=== PATIENT | male | born 1960 | race Caucasian/White ===

== ENCOUNTER 2017-05-12 13:15 | Outpatient (RCR) | payer OTHER, SELFPAY | END 2017-05-12 13:16 | disposition home or self-care (01) | LOC: PT 13:15 | PROVIDERS: Visit Provider Orthopaedic Surgery Sports Medicine | DX: M67.01 Short Achilles tendon (acquired), right ankle (principal); M19.071 Primary osteoarthritis, right ankle and foot; M76.821 Posterior tibial tendinitis, right leg | CPT/HCPCS: 97760 ==

== ENCOUNTER 2017-05-25 13:00 | Outpatient (RCR) | payer OTHER, SELFPAY | END 2017-05-25 13:01 | disposition home or self-care (01) | LOC: PT 13:00 | PROVIDERS: Visit Provider Orthopaedic Surgery Sports Medicine | DX: M67.01 Short Achilles tendon (acquired), right ankle (principal); M76.821 Posterior tibial tendinitis, right leg | CPT/HCPCS: 97010; 97014; 97016; 97110; G0283 ==

== ENCOUNTER 2023-01-11 10:36 | Emergency (ER) | payer SELFPAY ==
[2023-01-11 10:38] VITALS: BP 158/85; PULSE 61; RESP 18; TEMP 36.7; O2SAT 99; BMI 25.1
--- NOTE | 2023-01-11 11:05 | XR_ITS ---
FINAL REPORT CLINICAL HISTORY: CONSTIPATION COMPARISON: None FINDINGS: A single supine view the abdomen was obtained. The bowel gas pattern is nonspecific but nonobstructive. There is a large amount of retained stool. There are no pathologic calcifications. Osseous structures are within normal limits. IMPRESSION: Nonspecific but nonobstructive bowel gas pattern. Large stool. Reviewed, Interpreted and Dictated by Betina Lane MD Transcribed by Jacqueline Wilkes Authenticated and [facility]
--- NOTE | 2023-01-11 11:12 | PC.NURSE ---
PT TO XR
--- NOTE | 2023-01-11 11:21 | PC.NURSE ---
Pt back to room from [facility]
--- NOTE | 2023-01-11 11:51 | CT_ITS ---
FINAL REPORT TECHNIQUE: Thin section axial images are obtained through the abdomen and pelvis after intravenous contrast. Reconstruction images were obtained from the axial data. Exam was performed using dose reduction techniques. CLINICAL HISTORY: no BM 2 weeks FINDINGS: LUNG BASES: Lung bases are clear. Heart size is normal. LIVER: Homogeneous. No focal lesion. GALLBLADDER/BILIARY SYSTEM: Gallbladder is present. No gallstones. No biliary dilatation. SPLEEN: Unremarkable. PANCREAS: Unremarkable. ADRENALS: Unremarkable. SYSTEM: No hydronephrosis, renal mass, or renal stone. Unremarkable urinary bladder. Pelvic organs are unremarkable for age. Enlarged prostate. GI TRACT: Pandiverticulosis without evidence of diverticulitis. Large amount of retained stool seen in the rectum. No small bowel obstruction or dilatation. Appendix not visualized. No secondary findings of appendicitis. No acute colon abnormality. LYMPH NODES/RETROPERITONEUM/MESENTERY: No lymphadenopathy. No abdominal aortic aneurysm. Possible prior inguinal hernia repair. Although, there may be a small left inguinal hernia. OTHER: No ascites. Remaining soft tissues without acute abnormality. BONES: No acute osseous abnormality. IMPRESSION: Large amount of stool present with rectal fecal impaction. Diverticulosis without evidence of diverticulitis. Reviewed, Interpreted and Dictated by Betina Lane MD Transcribed by Stephani Botello Authenticated and [facility]
--- NOTE | 2023-01-11 11:52 | HMH.EDGENADL ---
Discharge Plan Disposition Patient Disposition: Home, Self-Care Referrals Follow up/Referrals: Meka Sanchez MD [Primary Care Provider] - See instructions Activity Restrictions/Add. Instructions Additional Instructions/Restrictions: At this time it was felt you are safe to be discharged home. If new or worsening symptoms please do not hesitate to return the emergency department. If symptoms persist please follow-up with your family doctor as you are able. Clinical Impressions Clinical Impression: Fecal impaction Discharge ED Provider: Benjy Mcgregor General Adult HPI General Chief complaint: Abdominal Pain Stated complaint: stomach pain, possibly constipated Time Seen by Provider: 01/11/23 11:30 Mode of Arrival: Ambulatory Limitations: No Limitations Description of Symptoms (Recalled from ER Triage Doc. by RN): PT REPORTS DIFFUSE ABDOMINAL PAIN, REPORTS CONSTIPATION. LAST BM 2 WEEKS AGO. HAS NOT TAKEN ANY MEDICATIONS OR ENEMAS History of Present Illness HPI narrative: Patient is a 62-year-old male with past medical history of multiple hernia status post multiple surgical interventions, last surgical intervention 2014 at [place] with mesh repair. He presents emergency department for evaluation of constipation and abdominal pain. Onset was subacute. Patient has not had a bowel movement in 2 weeks. He has generalized abdominal pain that is difficult to localize. No vomiting. No dysuria. Adequate p.o. intake and urine output. Still passing flatus. Patient attempted to self disimpact himself at home for which he was unsuccessful. No other acute complaints at this time. Related Data Allergies Allergy/AdvReac Type Severity Reaction Status Date / Time No Known Allergies Allergy Unverified 02/23/17 15:27 [facility] Disclaimer: The information contained in this section may have been updated after the patient was seen, as this information can be updated by other users. Social History Smoking Status: Current every day smoker alcohol intake: never current occupational status: other Travel in the last 8 weeks: None ROS Obtained: Yes Systems reviewed as appropriate & no additional complaints except as documented Physical Exam General General appearance: alert and in no apparent distress Head Head exam: atraumatic and normocephalic Eye Eye exam: Present PERRL and EOMI ENT ENT exam: Present mucous membranes moist Neck Neck exam: Present normal inspection Chest Chest inspection: Present normal inspection and symmetric chest wall rise Respiratory Respiratory exam: Present normal lung sounds bilaterally; Absent respiratory distress Cardiovascular Cardiovascular exam: Present regular rate and normal rhythm Abdominal Exam Abdominal exam: Present distention (Mild) and tenderness (Mild, diffuse) Extremities Exam Extremities exam: Present normal inspection Neurological Exam Neurological exam: Present alert Psychiatric Psychiatric exam: Present normal affect Skin Skin exam: Present warm and dry Medical Decision Making Jorje Inquiry Pt receiving controlled substance: No Vital Signs: 01/11/23 10:38 Temperature 98.0 F Temperature Source Oral Pulse Rate [Radial] 61 Respiratory Rate 18 Blood Pressure [Right Arm] 158/85 H Blood Pressure Mean [Right Arm] 109 Blood Pressure Source [Right Arm] Automatic Cuff Blood Pressure Position [Right Arm] Sitting 02 Sat by Pulse Oximetry 99 Oxygen Delivery Method Room Air Lab Data Lab Results 01/11/23 12:10: WBC 17.8 H, RBC 5.40, Hgb 17.4, Hct 49.9, MCV 92.4, MCH 32.1 H, MCHC 34.8, RDW 14.2, Plt Count 207, MPV 9.0, Neut % (Auto) 77.6, Lymph % (Auto) 14.7, [place] % (Auto) 4.8, Eos % (Auto) 2.1, Baso % (Auto) 0.6, Neut # (Auto) 13.8 H, Lymph # (Auto) 2.6, [place] # (Auto) 0.9, Eos # (Auto) 0.4, Baso # (Auto) 0.1, Total Counted 100, Neutrophils % (Manual) 78 H, Lymphocytes % (Manual) 14, Monocytes % (Manual) 6, Eosinophils % (Manual) 2, Platelet Estimate
[2023-01-11 12:29] LABS: Basophils # 0.1 K/mm3 (0-0.2); Basophils % 0.6 % (0.1-2.0); Eosinophils # 0.4 K/mm3 (0.0-0.4); Eosinophils % 2.1 % (0.1-12.0); Hematocrit 49.9 % (42.0-52.0); Hemoglobin 17.4 g/dL (14.1-18.0); Lymphocytes # 2.6 K/mm3 (0.7-4.5); Lymphocytes % 14.7 % (10-50); MANUAL DIFFERENTIAL MANUAL DIFFERENTIAL (MANUAL DIFF); Mean Corpuscular HGB Conc 34.8 g/dL (31.8-35.4); Mean Corpuscular Hemoglobin 32.1 pg (27.0-31.2); Mean Corpuscular Volume 92.4 fl (80-94); Monocytes # 0.9 K/mm3 (0.1-1.0); Monocytes % 4.8 % (1.7-9.3); Neutrophils # 13.8 K/mm3 (1.8-7.8); Neutrophils % 77.6 % (37.0-80.0); Platelet Count 207 K/mm3 (142-424); Red Cell Distribution Width 14.2 % (11.5-17.5); White Blood Count 17.8 K/mm3 (4.8-10.8)
[2023-01-11 12:33] LABS: Alanine Aminotransferase 22 U/L (12-78); Albumin Level 4.4 g/dl (3.5-5.0); Albumin/Globulin Ratio 1.5 (1.1-1.8); Alkaline Phosphatase 91 U/L (38-126); Anion Gap 14.9 mEq/L (5-15); Aspartate Amino Transferase 24 U/L (17-59); Bilirubin,Total 0.6 mg/dl (0.2-1.3); Blood Urea Nitrogen 14 mg/dl (9-20); Calcium 9.1 mg/dl (8.4-10.2); Carbon Dioxide 27 mmol/L (22.0-30.0); Chloride 104 mmol/L (98-107); Creatinine Clearance Estimated 76 mL/min (50-200); Estimated Glomerular Filt Rate 62 ml/min (>60); GFR (African American) 75 ML/MIN (>60); Glucose 117 mg/dl (74-100); Potassium 3.9 mmoL/L (3.5-5.1); Sodium 142 mmol/L (136-145); Total Protein,Serum 7.4 g/dl (6.3-8.2)
[2023-01-11 12:39] LABS: Lactic Acid 1.4 mmol/L (0.7-2.1); Lipase 43 U/L (23-300)
[2023-01-11 12:46] LABS: Eosinophils % 2 % (0-3); Lymphocytes % 14 % (10-50); Monocytes % 6 % (2-9); Neutrophils % 78 % (42-76); Platelet Estimate Normal; RBC Morphology Normal; Total Cells Counted 100
[2023-01-11 13:18] LABS: Microscopic, Urine URINE MICROSCOPIC (MICROSCOPIC)
[2023-01-11 13:22] LABS: Appearance,Urine CLEAR (Clear); Bilirubin,Urine Negative (Negative); Blood, Urine Negative (Negative); Color,Urine YELLOW (Yellow); Glucose,Urine (UA) Negative (Negative); Ketones,Urine Negative (Negative); Leukocyte Esterase,Urine Negative (Negative); Nitrate,Urine Negative (Negative); Protein,Urine 1+ (Negative); Specific Gravity, Urine 1.025 (1.005-1.030)
[2023-01-11 14:32] LABS: Bacteria,Urine Trace /lpf; Squamous Epithelial Cell,Urine Occasional #/hpf (0-5)
[2023-01-11 16:26] VITALS: BP 145/70; PULSE 72; RESP 20; TEMP 36.7; O2SAT 96
== END 2023-01-11 16:28 | disposition home or self-care (01) ==
PROVIDERS: Emergency Provider Emergency Medicine; PCP Family Medicine
DX: R10.84 Generalized abdominal pain (principal); K56.41 Fecal impaction; F17.210 Nicotine dependence, cigarettes, uncomplicated
CPT/HCPCS: 74018; 74177; 80053; 81001; 83605; 83690; 85007; 85025; 96374; 99284; J0131; Q9967

== ENCOUNTER 2023-12-18 06:22 | Emergency (ER) | payer OTHER, SELFPAY ==
[2023-12-18] VITALS (9 sets, daily range): BP systolic 111–161; BP diastolic 85–118; PULSE 62–104; RESP 10–18; TEMP 36.5–37.1; O2SAT 95–98; BMI 25.1
--- NOTE | 2023-12-18 06:17 | ECG_ITS ---
APPROVED REPORT Exam: Resting ECG HR:83 bpm ECG Measurements Heart Rate 83 AXES QRSd 113 QRS 57 QT 365 T 56 QTc 404 Conclusion ATRIAL FIBRILLATION MODERATE INTRAVENTRICULAR CONDUCTION DELAY [110+ ms QRS DURATION] NONSPECIFIC ST & T-WAVE ABNORMALITY Posterior ECG, leads V4/V5/V6 are actually leads V7/V8/V9 Mild precordial depression, no STEMI Electronically signed by : BRYON LOPEZ, 12/18/2023 07:12:08
--- NOTE | 2023-12-18 06:19 | ECG_ITS ---
APPROVED REPORT Exam: Resting ECG HR:104 bpm ECG Measurements Heart Rate 104 AXES QRSd 98 QRS 54 QT 370 T 48 QTc 430 Conclusion ATRIAL FIBRILLATION WITH RAPID VENTRICULAR RESPONSE MODERATE ST DEPRESSION [0.05+ mV ST DEPRESSION] Mild precordial/lateral lead depression, no STEMI Electronically signed by : BRYON LOPEZ, 12/18/2023 07:12:28
--- NOTE | 2023-12-18 06:22 | XR_ITS ---
PROCEDURE INFORMATION: Exam: XR Chest Exam date and time: 12/18/2023 6:29 AM Age: 63 years old Clinical indication: Pain; Chest pressure; Additional info: Chest pain TECHNIQUE: Imaging protocol: Radiologic exam of the chest. Views: 2 views. COMPARISON: CR CXR1 CHEST-PORTABLE 01/15/2017 9:42 PM FINDINGS: Lungs: Unremarkable. No consolidation. Pleural spaces: Unremarkable. No pleural effusion. No pneumothorax. Heart/Mediastinum: Unremarkable. No cardiomegaly. Bones/joints: Unremarkable. IMPRESSION: No acute findings.
--- NOTE | 2023-12-18 06:27 | HMH.EDCP ---
Discharge Plan Disposition Patient Disposition: Admitted Referrals Follow up/Referrals: Provider,Referral, [Primary Care Provider] - See instructions Clinical Impressions Clinical Impression: Atrial fibrillation with RVR, Elevated troponin, Hyperkalemia, Chest pain, Hypertension Print Language Print Language: [place] Discharge ED Provider: Brenda Hughes HPI <Joann Mccullough MD - Last Filed: 12/18/23 07:05> General Chief Complaint: Chest Pain Stated Complaint: Chest pain Time Seen by Provider: 12/18/23 06:25 History of Present Illness HPI narrative: 63-year-old male with reported history of COPD presents to the ER with left-sided chest pain. Patient reports he was awoken from sleep approximately 1.5 hours prior to arrival with severe left-sided chest pain and sweating. He states he was not nauseous or dizzy. The pain did not radiate. He walked up to his niece's house next door, and she called 911. Patient reports no known cardiac history, he takes no blood thinners, he has never had symptoms like this before. He denies having any sick symptoms recently, ROS is otherwise negative. EMS reports they administered aspirin and nitro, patient states his chest pain improved from an 9 out of 10 to a 4 out of 10 after these interventions. EMS reports his blood pressure improved from the 190s to the 160s after these interventions. Related Data Home Medications ?Medication ?Instructions ?Recorded ?Confirmed famotidine 40 mg tablet 40 mg PO HS 12/18/23 12/18/23 folic acid 1 mg tablet 1 mg PO DAILY 12/18/23 12/18/23 hydroxyzine pamoate 25 mg capsule 25 mg PO HS 12/18/23 12/18/23 loratadine 10 mg tablet 10 mg PO DAILY 12/18/23 12/18/23 primidone 50 mg tablet 25 mg PO HS 12/18/23 12/18/23 propranolol 60 mg capsule,24 60 mg PO DAILY 12/18/23 12/18/23 hr,extended release simvastatin 20 mg tablet 20 mg PO HS 12/18/23 12/18/23 tamsulosin 0.4 mg capsule 0.4 mg PO HS 12/18/23 12/18/23 Allergies Allergy/AdvReac Type Severity Reaction Status Date / Time No Known Allergies Allergy Unverified 02/23/17 15:27 PFSH <Joann Mccullough MD - Last Filed: 12/18/23 07:05> [facility] Disclaimer: The information contained in this section may have been updated after the patient was seen, as this information can be updated by other users. Social History (Updated 01/11/23 @ 16:28 by Benjy Mcgregor MD) Smoking Status: Current every day smoker alcohol intake: never current occupational status: other Travel in the last 8 weeks: None <Joann Mccullough MD - Last Filed: 12/18/23 07:05> ROS Obtained: Yes All systems reviewed & no additional complaints except as documented Positive ROS per HPI Physical Exam <Joann Mccullough MD - Last Filed: 12/18/23 07:05> General General appearance: alert and in no apparent distress Head Head exam: atraumatic and normocephalic Eye Eye exam: Present PERRL and EOMI ENT ENT exam: Present mucous membranes moist Neck Neck exam: Present normal inspection and full ROM Chest Chest inspection: Present symmetric chest wall rise Respiratory Respiratory exam: Present normal lung sounds bilaterally; Absent respiratory distress, wheezes or stridor Cardiovascular Cardiovascular exam: Present regular rate and normal rhythm Abdominal Exam Abdominal exam: Present soft; Absent distention, tenderness, guarding or rebound Extremities Exam Extremities exam: Present full ROM Neurological Exam Neurological exam: Present alert and oriented X3; Absent motor sensory deficit Psychiatric Psychiatric exam: Present normal affect and normal mood Skin Skin exam: Present warm and dry HEART Score <Joann Mccullough MD - Last Filed: 12/18/23 07:05> HEART Score HEART Score assessment performed?: No <Brenda Hughes DO - Last Filed: 12/18/23 10:42> HEART Score HEART Score assessment performed?: Yes History (anamnesis): Moderately suspicious ECG: Non-specific disturbance Age: 45-65 years Risk factors: 1-2 risk factors Troponin: > 3x normal limit HEART Score: 6 Critical Care <Joann Mccullough MD - Last Filed: 12/18/23 07:05> Critical Care Time Critical Care Time: Yes Attestation: On 12/18/23, the high probability of a clinically significant, sudden or life threatening deterioration of the following system(s) (cardiac) required my full and direct attention, intervention and personal management. The time I documented below is in addition to time spent performing reported procedures but includes the following listed in this critical care notation. Total Time Total Critical Care Time: 32 Medical Decision Making <Joann Mccullough MD - Last Filed: 12/18/23 07:05> Medical Records Medical records reviewed: Yes I reviewed the patient's medical records. MR Comment: Patient has previously been evaluated in our ER however he has no cardiac history documented in our system. Jorje Inquiry Pt receiving controlled substance: No Vital Signs Vital Signs: 12/18/23 06:22 12/18/23 07:01 12/18/23 07:30 Temperature 97.7 F Temperature Source Oral Pulse Rate 64 74 Pulse Rate [Apical] 104 H Respiratory Rate 12 12 13 Blood Pressure 121/91 H 134/94 H Blood Pressure [Right Arm] 161/118 H Blood Pressure Mean Blood Pressure Mean [Right Arm] 132 Blood Pressure Source [Right Arm] Automatic Cuff Blood Pressure Position [Right Arm] Sitting 02 Sat by Pulse Oximetry 95 95 96 Oxygen Delivery Method Room Air 12/18/23 08:00 12/18/23 08:30 12/18/23 09:00 Temperature Temperature Source Pulse Rate 62 65 74 Pulse Rate [Apical] Respiratory Rate 12 10 L 16 Blood Pressure 124/90 111/86 113/97 H Blood Pressure [Right Arm] Blood Pressure Mean 100 Blood Pressure Mean [Right Arm] Blood Pressure Source [Right Arm] Blood Pressure Position [Right Arm] 02 Sat by Pulse Oximetry 98 95 98 Oxygen Delivery Method 12/18/23 09:30 Temperature Temperature Source Pulse Rate 67 Pulse Rate [Apical] Respiratory Rate 16 Blood Pressure 126/91 H Blood Pressure [Right Arm] Blood Pressure Mean 98 Blood Pressure Mean [Right Arm] Blood Pressure Source [Right Arm] Blood Pressure Position [Right Arm] 02 Sat by Pulse Oximetry 98 Oxygen Delivery Method Lab Data Labs: Lab Results 12/18/23 06:00: WBC 11.4 H, RBC 5.84, Hgb 18.4 H, Hct 52.9 H, MCV 90.6, MCH 31.6 H, MCHC 34.8, RDW 14.5, Plt Count 196, MPV 10.1, Neut % (Auto) 55.2, Lymph % (Auto) 29.0, [place] % (Auto) 8.1, Eos % (Auto) 6.1, Baso % (Auto) 1.5, Neut # (Auto) 6.3, Lymph # (Auto) 3.3, [place] # (Auto) 0.9, Eos # (Auto) 0.7 H, Baso # (Auto) 0.2, PT 10.3, INR 0.91, APTT 27.6, D-Dimer 0.53 H, Sodium 141, Potassium 5.4 H, Chloride 105, Carbon Dioxide 27, Anion Gap 14.4, BUN 14, Creatinine 1.20, Estimated Creat Clear 75, Estimated GFR 62, Est GFR ( Amer) 74, Glucose 101 H, Calcium 10.8 H, Total Bilirubin 0.8, AST 33, ALT 31, Alkaline Phosphatase 87, Troponin I < 0.01, NT-Pro-B Natriuret Pep 113, Total Protein 7.9, Albumin 5.0, Globulin 2.9, Albumin/Globulin Ratio 1.7 12/18/23 09:06: Troponin I 0.30 H 12/18/23 06:00 12/18/23 06:00 Response Orders (Tests/Meds): ED MEDICATIONS Generic Name Dose Route Start Last Admin Trade Name Freq PRN Reason Stop Dose Admin Nitroglycerin 0.4 mg 12/18/23 06:22 12/18/23 06:50 Nitroglycerin 0.4mg Sl Tablet SL 12/19/23 06:22 0.4 mg Q5MINP PRN Administration Chest Pain Discontinued Medications Generic Name Dose Route Start Last Admin Trade Name Freq PRN Reason Stop Dose Admin Apixaban 5 mg 12/18/23 09:58 12/18/23 10:03 Apixaban 5mg Tablet PO 12/18/23 09:59 5 mg ONCE ONE Administration Metoprolol Tartrate 5 mg 12/18/23 06:23 12/18/23 07:06 Metoprolol Tartrate 5mg/5ml Vial IV 12/18/23 06:24 Not Given ONCE ONE Metoprolol Tartrate 2.5 mg 12/18/23 06:23 12/18/23 06:33 Metoprolol Tartrate 5mg/5ml Vial IV 12/18/23 06:24 2.5 mg ONCE ONE Administration Metoprolol Tartrate 50 mg 12/18/23 08:18 12/18/23 08:29 Metoprolol Tartrate 50mg Tablet PO 12/18/23 08:19 50 mg ONCE ONE Administration ORDERS Category Date Time Status XR chest 2V Stat Exams 12/18/23 06:22 Completed Activated Partial Thrombo Time Stat Lab 12/18/23 06:00 Completed Complete Blood Count Auto Diff Stat Lab 12/18/23 06:00 Completed Comprehensive Metabolic Panel Stat Lab 12/18/23 06:00 Completed D-Dimer Stat Lab 12/18/23 06:00 Completed HIV (1&2) Antibody Rapid Stat Lab 12/18/23 06:36 Ordered Hep C Ab with Reflex to RNA Stat Lab 12/18/23 06:36 Ordered NT Pro Brain Natriuretic Pep. Stat Lab 12/18/23 06:00 Completed Prothrombin Time INR Stat Lab 12/18/23 06:00 Completed Troponin I Q3H Lab 12/18/23 06:00 Completed Troponin I Q3H Lab 12/18/23 09:06 Completed Troponin I Q3H Lab 12/18/23 12:30 Ordered MDM Narrative Medical Decision Narrative: In summary, this 63-year-old male with history of COPD which is a comorbidity of current condition and increases overall morbidity presents to the emergency department today with left-sided chest pain, sweating that was improved after receiving aspirin and nitro from EMS. On initial evaluation patient is hemodynamically stable though he is intermittently tachycardic, appears to be in atrial fibrillation, afebrile, 2+ pulses throughout, no pitting edema, no abdominal pain or tenderness, GCS 15, no neurodeficits. Differential diagnosis includes but is not limited to ACS, PE, infectious etiology, arrhythmia, hypertensive urgency/emergency, electrolyte abnormality, dehydration, esophageal spasm. Based on these concerns, I ordered serum labs, cardiac workup. ECGs from EMS demonstrated depressions in the lateral leads so posterior ECG was initially performed. ECG personally interpreted demonstrates atrial fibrillation with rate 83, no STEMI, normal axis, normal QTc, patient did have depressions in lead V2, V3, leads V4/5/6 where the posterior leads on the initial ECG and did not demonstrate ST elevation. Standard ECG was then performed and personally interpreted demonstrating A-fib with RVR rate 104, normal axis, persistent ST abnormalities in the precordial leads but no STEMI. Patient received low-dose metoprolol for rate control and some hypertension management since patient continues feeling symptomatic. Patient states he has no history of atrial fibrillation and does not know when this may have started. Chest x-ray personally interpreted does not demonstrate acute intrathoracic abnormality, see radiology read for final interpretation. Patient received nitro for persistently elevated blood pressure and continued chest pain. Blood pressure and chest pain have improved. All labs pending at the time of physician handoff. Patient handed off to Dr. Hughes for continued management and disposition <Brenda Hughes, DO - Last Filed: 12/18/23 10:42> Vital Signs Vital Signs: 12/18/23 06:22 12/18/23 07:01 12/18/23 07:30 Temperature 97.7 F Temperature Source Oral Pulse Rate 64 74 Pulse Rate [Apical] 104 H Respiratory Rate 12 12 13 Blood Pressure 121/91 H 134/94 H Blood Pressure [Right Arm] 161/118 H Blood Pressure Mean Blood Pressure Mean [Right Arm] 132 Blood Pressure Source [Right Arm] Automatic Cuff Blood Pressure Position [Right Arm] Sitting 02 Sat by Pulse Oximetry 95 95 96 Oxygen Delivery Method Room Air 12/18/23 08:00 12/18/23 08:30 12/18/23 09:00 Temperature Temperature Source Pulse Rate 62 65 74 Pulse Rate [Apical] Respiratory Rate 12 10 L 16 Blood Pressure 124/90 111/86 113/97 H Blood Pressure [Right Arm] Blood Pressure Mean 100 Blood Pressure Mean [Right Arm] Blood Pressure Source [Right Arm] Blood Pressure Position [Right Arm] 02 Sat by Pulse Oximetry 98 95 98 Oxygen Delivery Method 12/18/23 09:30 Temperature Temperature Source Pulse Rate 67 Pulse Rate [Apical] Respiratory Rate 16 Blood Pressure 126/91 H Blood Pressure [Right Arm] Blood Pressure Mean 98 Blood Pressure Mean [Right Arm] Blood Pressure Source [Right Arm] Blood Pressure Position [Right Arm] 02 Sat by Pulse Oximetry 98 Oxygen Delivery Method Lab Data Labs: Lab Results 12/18/23 06:00: WBC 11.4 H, RBC 5.84, Hgb 18.4 H, Hct 52.9 H, MCV 90.6, MCH 31.6 H, MCHC 34.8, RDW 14.5, Plt Count 196, MPV 10.1, Neut % (Auto) 55.2, Lymph % (Auto) 29.0, [place] % (Auto) 8.1, Eos % (Auto) 6.1, Baso % (Auto) 1.5, Neut # (Auto) 6.3, Lymph # (Auto) 3.3, [place] # (Auto) 0.9, Eos # (Auto) 0.7 H, Baso # (Auto) 0.2, PT 10.3, INR 0.91, APTT 27.6, D-Dimer 0.53 H, Sodium 141, Potassium 5.4 H, Chloride 105, Carbon Dioxide 27, Anion Gap 14.4, BUN 14, Creatinine 1.20, Estimated Creat Clear 75, Estimated GFR 62, Est GFR ( Amer) 74, Glucose 101 H, Calcium 10.8 H, Total Bilirubin 0.8, AST 33, ALT 31, Alkaline Phosphatase 87, Troponin I < 0.01, NT-Pro-B Natriuret Pep 113, Total Protein 7.9, Albumin 5.0, Globulin 2.9, Albumin/Globulin Ratio 1.7 12/18/23 09:06: Troponin I 0.30 H Response Orders (Tests/Meds): ED MEDICATIONS Generic Name Dose Route Start Last Admin Trade Name Freq PRN Reason Stop Dose Admin Nitroglycerin 0.4 mg 12/18/23 06:22 12/18/23 06:50 Nitroglycerin 0.4mg Sl Tablet SL 12/19/23 06:22 0.4 mg Q5MINP PRN Administration Chest Pain Discontinued Medications Generic Name Dose Route Start Last Admin Trade Name Freq PRN Reason Stop Dose Admin Apixaban 5 mg 12/18/23 09:58 12/18/23 10:03 Apixaban 5mg Tablet PO 12/18/23 09:59 5 mg ONCE ONE Administration Metoprolol Tartrate 5 mg 12/18/23 06:23 12/18/23 07:06 Metoprolol Tartrate 5mg/5ml Vial IV 12/18/23 06:24 Not Given ONCE ONE Metoprolol Tartrate 2.5 mg 12/18/23 06:23 12/18/23 06:33 Metoprolol Tartrate 5mg/5ml Vial IV 12/18/23 06:24 2.5 mg ONCE ONE Administration Metoprolol Tartrate 50 mg 12/18/23 08:18 12/18/23 08:29 Metoprolol Tartrate 50mg Tablet PO 12/18/23 08:19 50 mg ONCE ONE Administration ORDERS Category Date Time Status XR chest 2V Stat Exams 12/18/23 06:22 Completed Activated Partial Thrombo Time Stat Lab 12/18/23 06:00 Completed Complete Blood Count Auto Diff Stat Lab 12/18/23 06:00 Completed Comprehensive Metabolic Panel Stat Lab 12/18/23 06:00 Completed D-Dimer Stat Lab 12/18/23 06:00 Completed HIV (1&2) Antibody Rapid Stat Lab 12/18/23 06:36 Ordered Hep C Ab with Reflex to RNA Stat Lab 12/18/23 06:36 Ordered NT Pro Brain Natriuretic Pep. Stat Lab 12/18/23 06:00 Completed Prothrombin Time INR Stat Lab 12/18/23 06:00 Completed Troponin I Q3H Lab 12/18/23 06:00 Completed Troponin I Q3H Lab 12/18/23 09:06 Completed Troponin I Q3H Lab 12/18/23 12:30 Ordered ECG Data Tracing #3: Attestation: I reviewed this ECG and interpreted as documented below: ECG Narrative: Atrial fibrillation with a ventricular rate of [address] changes concerning for STEMI. ECG initial impression date: 12/18/23 ECG initial impression time: 10:16 MDM Narrative Medical Decision Narrative: In summary, this 63-year-old male with history of COPD which is a comorbidity of current condition and increases overall morbidity presents to the emergency department today with left-sided chest pain, sweating that was improved after receiving aspirin and nitro from EMS. On initial evaluation patient is hemodynamically stable though he is intermittently tachycardic, appears to be in atrial fibrillation, afebrile, 2+ pulses throughout, no pitting edema, no abdominal pain or tenderness, GCS 15, no neurodeficits. Differential diagnosis includes but is not limited to ACS, PE, infectious etiology, arrhythmia, hypertensive urgency/emergency, electrolyte abnormality, dehydration, esophageal spasm. Based on these concerns, I ordered serum labs, cardiac workup. ECGs from EMS demonstrated depressions in the lateral leads so posterior ECG was initially performed. ECG personally interpreted demonstrates atrial fibrillation with rate 83, no STEMI, normal axis, normal QTc, patient did have depressions in lead V2, V3, leads V4/5/6 where the posterior leads on the initial ECG and did not demonstrate ST elevation. Standard ECG was then performed and personally interpreted demonstrating A-fib with RVR rate 104, normal axis, persistent ST abnormalities in the precordial leads but no STEMI. Patient received low-dose metoprolol for rate control and some hypertension management since patient continues feeling symptomatic. Patient states he has no history of atrial fibrillation and does not know when this may have started. Chest x-ray personally interpreted does not demonstrate acute intrathoracic abnormality, see radiology read for final interpretation. Patient received nitro for persistently elevated blood pressure and continued chest pain. Blood pressure and chest pain have improved. All labs pending at the time of physician handoff. Patient handed off to Dr. Hughes for continued management and disposition Saul DO: I assumed care of the patient at 0700. Initial troponin negative. Chest x-ray without acute pathology. Patient had improvement in his heart rate after administration of metoprolol with improvement to a rate in the 70s to 80s, however he intermittently fluctuates with heart rate ranging on the way from the 40s to the 130s. He remains hemodynamically stable. I administered him oral metoprolol tartrate to see how he tolerates this to help determine whether the patient will be appropriate for discharge home with treatment of new A-fib versus admission for continued monitoring. I also had a very long discussion with him regarding the risk versus benefit for anticoagulation. Based on his [id number] score, he has a score of 1 and is low to moderate risk at which point anticoagulation should be considered. His has blood score is also very low for any sort of bleeding risk, so after shared decision-making, the patient is agreeable to start Eliquis for anticoagulation. He was given his first dose here. At 0730, patient was placed in ED observation status pending second troponin and continued improvement in his heart to determine whether or not the patient would be appropriate for discharge versus admission. The patient was provided serial reevaluations and cardiac monitoring while awaiting ultimate disposition. On multiple subsequent reassessments, the patient is resting comfortably with no symptoms or complaints. His heart rate continues to fluctuate all the way from the 40s to the 130s, but he is typically mostly in the 70-80 range. Second troponin resulted and is significantly elevated. Given elevated troponin as well as his variations in heart rate with new onset atrial fibrillation, I feel he would benefit from admission for continued monitoring. I had an interactive discussion with Dr. Garcia who admitted the patient. Patient was admitted in stable condition at 10:30 AM after 3 hours in ED observation.
[2023-12-18] MEDS: METOPROLOL TARTRATE 5MG/5ML VIAL 2.5 MG IV (06:33)
[2023-12-18] MEDS: NITROGLYCERIN 0.4MG SL TABLET 0.4 MG SL (06:50)
[2023-12-18 06:51] LABS: Basophils # 0.2 K/mm3 (0-0.2); Basophils % 1.5 % (0.1-2.0); Eosinophils # 0.7 K/mm3 (0.0-0.4); Eosinophils % 6.1 % (0.1-12.0); Hematocrit 52.9 % (42.0-52.0); Lymphocytes # 3.3 K/mm3 (0.7-4.5); Mean Corpuscular HGB Conc 34.8 g/dL (31.8-35.4); Mean Corpuscular Hemoglobin 31.6 pg (27.0-31.2); Mean Corpuscular Volume 90.6 fl (80-94); Mean Platelet Volume 10.1 fl (7.4-10.4); Monocytes # 0.9 K/mm3 (0.1-1.0); Monocytes % 8.1 % (1.7-9.3); Neutrophils # 6.3 K/mm3 (1.8-7.8); Neutrophils % 55.2 % (37.0-80.0); Platelet Count 196 K/mm3 (142-424); Red Blood Count 5.84 M/mm3 (4.60-6.20); Red Cell Distribution Width 14.5 % (11.5-17.5); White Blood Count 11.4 K/mm3 (4.8-10.8)
[2023-12-18 06:59] LABS: Chloride 105 mmol/L (98-107); Potassium 5.4 mmoL/L (3.5-5.1); Sodium 141 mmol/L (136-145)
[2023-12-18 07:01] LABS: Blood Urea Nitrogen 14 mg/dl (9-20); Creatinine Clearance Estimated 75 mL/min (50-200); Estimated Glomerular Filt Rate 62 ml/min (>60); GFR (African American) 74 ML/MIN (>60)
[2023-12-18 07:02] LABS: Alanine Aminotransferase 31 U/L (12-78); Albumin/Globulin Ratio 1.7 (1.1-1.8); Alkaline Phosphatase 87 U/L (38-126); Anion Gap 14.4 mEq/L (5-15); Aspartate Amino Transferase 33 U/L (17-59); Bilirubin,Total 0.8 mg/dl (0.2-1.3); Calcium 10.8 mg/dl (8.4-10.2); Carbon Dioxide 27 mmol/L (22.0-30.0); Globulin 2.9 g/dL (1.3-3.2); Glucose 101 mg/dl (74-100); Total Protein,Serum 7.9 g/dl (6.3-8.2)
[2023-12-18 07:03] LABS: D-Dimer 0.53 ug/mL (0.0-0.5)
[2023-12-18 07:11] LABS: NT Pro Brain Natriuretic Pep. 113 pg/mL (0-125)
[2023-12-18 07:19] LABS: Activated Partial Thrombo Time 27.6 seconds (22.8-30.6); INR 0.91 (0.9-1.1); Prothrombin Time 10.3 seconds (10.1-12.5)
[2023-12-18 07:31] LABS: Troponin I < 0.01 ng/ml (0.00-0.034)
[2023-12-18 07:35] LABS: Hemoglobin 18.4 g/dL (14.1-18.0)
[2023-12-18] MEDS: METOPROLOL TARTRATE 50MG TABLET 50 MG PO (08:29)
[2023-12-18] MEDS: APIXABAN 5MG TABLET 5 MG PO (10:03)
--- NOTE | 2023-12-18 10:14 | ECG_ITS ---
APPROVED REPORT Exam: Resting ECG HR:79 bpm ECG Measurements Heart Rate 79 AXES QRSd 101 QRS 60 QT 400 T 57 QTc 435 Conclusion ATRIAL FIBRILLATION ABNORMAL RHYTHM ECG Electronically signed by : TYRONE FRASER, 12/18/2023 13:40:37
--- NOTE | 2023-12-18 10:23 | PC.NURSE ---
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
--- NOTE | 2023-12-18 10:28 | HMH.PHAINT1 ---
Pharmacy Intervention Comments: MEDICATION RECONCILIATION COMPLETED ON PATIENT USING EXTERNAL FILL HISTORY FROM PHARMACY. -MAUREEN YOON, GRACIED
--- NOTE | 2023-12-18 10:34 | EXP.HP ---
[facility] Disclaimer: The information contained in this section may have been updated after the patient was seen, as this information can be updated by other users. Social History (Updated 01/11/23 @ 16:28 by Benjy Mcgregor MD) Smoking Status: Current every day smoker alcohol intake: never current occupational status: other Travel in the last 8 weeks: None Meds Home Medications and Allergies Home Medications ?Medication ?Instructions ?Recorded ?Confirmed ?Type famotidine 40 mg tablet 40 mg PO HS 12/18/23 12/18/23 History folic acid 1 mg tablet 1 mg PO DAILY 12/18/23 12/18/23 History hydroxyzine pamoate 25 mg capsule 25 mg PO HS 12/18/23 12/18/23 History loratadine 10 mg tablet 10 mg PO DAILY 12/18/23 12/18/23 History primidone 50 mg tablet 25 mg PO HS 12/18/23 12/18/23 History propranolol 60 mg capsule,24 60 mg PO DAILY 12/18/23 12/18/23 History hr,extended release simvastatin 20 mg tablet 20 mg PO HS 12/18/23 12/18/23 History tamsulosin 0.4 mg capsule 0.4 mg PO HS 12/18/23 12/18/23 History New Prescriptions to Start Prescriptions: Allergies Allergy/AdvReac Type Severity Reaction Status Date / Time No Known Allergies Allergy Unverified 02/23/17 15:27 Exam Data for Last 24 hours Vital signs and Labs for Last 24 Hours: Temp Pulse Resp BP Pulse Ox O2 Del Method 97.7 F 67 12 117/85 96 Room Air 12/18/23 06:22 12/18/23 10:00 12/18/23 10:00 12/18/23 10:00 12/18/23 10:00 12/18/23 06:22 Laboratory Results - last 24 hr 12/18/23 06:00: WBC 11.4 H, RBC 5.84, Hgb 18.4 H, Hct 52.9 H, MCV 90.6, MCH 31.6 H, MCHC 34.8, RDW 14.5, Plt Count 196, MPV 10.1, Neut % (Auto) 55.2, Lymph % (Auto) 29.0, [place] % (Auto) 8.1, Eos % (Auto) 6.1, Baso % (Auto) 1.5, Neut # (Auto) 6.3, Lymph # (Auto) 3.3, [place] # (Auto) 0.9, Eos # (Auto) 0.7 H, Baso # (Auto) 0.2, PT 10.3, INR 0.91, APTT 27.6, D-Dimer 0.53 H, Sodium 141, Potassium 5.4 H, Chloride 105, Carbon Dioxide 27, Anion Gap 14.4, BUN 14, Creatinine 1.20, Estimated Creat Clear 75, Estimated GFR 62, Est GFR ( Amer) 74, Glucose 101 H, Calcium 10.8 H, Total Bilirubin 0.8, AST 33, ALT 31, Alkaline Phosphatase 87, Troponin I < 0.01, NT-Pro-B Natriuret Pep 113, Total Protein 7.9, Albumin 5.0, Globulin 2.9, Albumin/Globulin Ratio 1.7 12/18/23 09:06: Troponin I 0.30 H I & O for Last 24 hours: Intake & Output 12/15/23 12/16/23 12/17/23 12/18/23 23:59 23:59 23:59 23:59 Weight 81.647 kg
--- NOTE | 2023-12-18 10:35 | PC.NURSE ---
Report given to JOSÉ [address] on second floor.
== END 2023-12-18 11:06 | disposition left against medical advice (07) ==
LOC: ER 10:20 → 2ND 10:33
PROVIDERS: Emergency Medicine; Emergency Provider Emergency Medicine
DX: I48.91 Unspecified atrial fibrillation (principal); E87.5 Hyperkalemia; R07.9 Chest pain, unspecified; I10 Essential (primary) hypertension; R79.89 Other specified abnormal findings of blood chemistry; Z53.29 Procedure and treatment not carried out because of patient's decision for other reasons
CPT/HCPCS: 71046; 80053; 83880; 84484; 85025; 85378; 85610; 85730; 93005; 96374; 96375; 99291

== ENCOUNTER 2024-01-06 09:41 | Outpatient (CLI) | payer OTHER, SELFPAY ==
[2024-01-06 10:21] LABS: Basophils # 0.1 K/mm3 (0-0.2); Eosinophils # 0.6 K/mm3 (0.0-0.4); Eosinophils % 6.6 % (0.1-12.0); Hematocrit 48.9 % (42.0-52.0); Hemoglobin 16.8 g/dL (14.1-18.0); Lymphocytes # 2.2 K/mm3 (0.7-4.5); Lymphocytes % 24.3 % (10-50); Mean Corpuscular HGB Conc 34.3 g/dL (31.8-35.4); Mean Corpuscular Hemoglobin 31.4 pg (27.0-31.2); Mean Corpuscular Volume 91.8 fl (80-94); Mean Platelet Volume 9.4 fl (7.4-10.4); Monocytes # 0.7 K/mm3 (0.1-1.0); Monocytes % 7.8 % (1.7-9.3); Neutrophils # 5.4 K/mm3 (1.8-7.8); Neutrophils % 60.4 % (37.0-80.0); Platelet Count 175 K/mm3 (142-424); Red Blood Count 5.33 M/mm3 (4.60-6.20); Red Cell Distribution Width 14.4 % (11.5-17.5)
[2024-01-06 10:50] LABS: Albumin Level 4.2 g/dl (3.5-5.0); Chloride 106 mmol/L (98-107)
[2024-01-06 10:51] LABS: Potassium 3.7 mmoL/L (3.5-5.1); Sodium 141 mmol/L (136-145)
[2024-01-06 10:53] LABS: Alanine Aminotransferase 39 U/L (12-78); Alkaline Phosphatase 73 U/L (38-126); Anion Gap 9.7 mEq/L (5-15); Aspartate Amino Transferase 29 U/L (17-59); Bilirubin,Direct 0.2 mg/dl (0.0-0.4); Bilirubin,Indirect 0.8 mg/dL (0.0-0.9); Bilirubin,Unconjugated 0.9 mg/dL (0.0-1.1); Blood Urea Nitrogen 12 mg/dl (9-20); Carbon Dioxide 29 mmol/L (22.0-30.0); Estimated Glomerular Filt Rate 56 ml/min (>60); GFR (African American) 68 ML/MIN (>60); Total Protein,Serum 6.5 g/dl (6.3-8.2)
[2024-01-06 10:54] LABS: Calcium 9.2 mg/dl (8.4-10.2); Chol/HDL Ratio 3.6 (1-3.5); Cholesterol 127 mg/dl (140-200); Glucose 115 mg/dl (74-100); HDL Cholesterol 35 mg/dl (40-60); Triglycerides 141 mg/dl (30-150); VLDL Cholesterol 28 mg/dL (0-40)
[2024-01-06 11:06] LABS: Direct LDL Cholesterol 67.24 mg/dL (100-129)
[2024-01-06 11:10] LABS: Free T4 (Free Thyroxine) 1.03 ng/dl (0.78-2.19)
[2024-01-06 11:25] LABS: Thyroid Stimulating Hormone 2.44 uIU/mL (0.465-4.68)
[2024-01-06 11:38] LABS: Hemoglobin A1C 5.4 % (4.0-6.0)
== END 2024-01-06 23:59 | disposition home or self-care (01) ==
LOC: RT 09:42
PROVIDERS: PCP Student in an Organized Health Care Education/Training Program; Visit Provider Nurse Practitioner
DX: I48.0 Paroxysmal atrial fibrillation (principal); R07.89 Other chest pain; I10 Essential (primary) hypertension; R06.09 Other forms of dyspnea; R79.89 Other specified abnormal findings of blood chemistry; E87.5 Hyperkalemia
CPT/HCPCS: 36415; 80048; 80061; 80076; 83036; 84439; 84443; 85025; 93270

== ENCOUNTER 2024-01-20 11:35 | Outpatient (CLI) | payer OTHER, SELFPAY ==
--- NOTE | 2024-01-20 | CA_ITS ---
APPROVED REPORT Exam: Pharmacologic Technologist: Teresa Cullen Ht: 5 ft 11 in Wt: 190 lbs BSA: 2.06 m2 HR: 47 bpm BP: 144/80 mmHg Rhythm: Marked sinus dima, otherwise normal Medical History Cardiac Risk Factors: HTN, Smoking Stress Test Details HR Resting HR: 47 bpm Max Heart Rate (APMHR): 159.090236 bpm Target HR (85% APMHR): 135.345280 bpm Recovery HR: 58 bpm BP Resting BP: 144.0/80.0 mmHg Recovery BP: 124.0/80.0 mmHg ECG Resting ECG: Marked sinus dima, otherwise normal Stress ECG Conclusion During lexiscan pt experincing chest heaviness and SOA. Rare PVC noted. No singificant ST changes. No significant ST change. Unremarkable lexiscan stress. Electronically signed by : Sammie Cesar MD 01/24/2024 01:02:03
--- NOTE | 2024-01-20 11:41 | NM_ITS ---
APPROVED REPORT Exam: Nuclear Stress Test Indication: Chest pain, SOB, Palpitations, Afib, HTN, High cholesterol, Tobacco use, Family history Patient Location: Outpatient Stress Tech: Teresa Cullen NM Tech:IGOR Cruz RT(R)(N) Ht: 5 ft 11 in Wt: 190 lbs HR: 47 bpm BP: 144/80 mmHg BSA: 2.06 m2 TID: 1.04 BMI: 26.4 History: Chest pain, SOB, Palpitations, Afib, HTN, High cholesterol, Tobacco use, Family history Procedure: Patient received 0.4 mg of intravenous Lexiscan, resting heart rate 47 bpm, resting blood pressure 144/80 mmHg, with Lexiscan maximum heart rate achieved was 66 bpm which is % of the maximum predicted heart rate and blood pressure was 126/69 mmHg. With Lexiscan, patient denied any complaint of chest pain. Cardiac Stress and Resting SPECT Images: Cardiac Stress and Resting SPECT images were obtained using technetium 99m Myoview 29.1 mCi stress and 10.14 mCi at rest. Resting and stress imaging in supine and prone positions demonstrate a large sized, moderate, fixed perfusion defect in the inferior LV wall from the base and extending distally towards the inferoapical region. There is minimal reversibility is noted apically. Gated imaging demonstrates normal global LV systolic function. There is mild hypokinesis of the inferior LV wall. LVEF is calculated at 56%. Conclusion: Large sized, moderate, fixed perfusion defect in the inferior LV wall from the base and extending distally towards the inferoapical region. There is minimal reversibility is noted apically. Gated imaging demonstrates normal global LV systolic function. There is mild hypokinesis of the inferior LV wall. LVEF is calculated at 56%. Electronically signed by : Sammie Cesar MD 01/24/2024 01:04:56
[2024-01-20] MEDS: ISOTOPE MYOVIEW (PER STUDY) 1 DOSE IV (14:17)
[2024-01-20] MEDS: SODIUM CHLORIDE 0.9% 10ML SYR (RAD ONLY) 10 ML IV ×2 (14:17→14:18)
[2024-01-20] MEDS: REGADENOSON 0.4MG/5ML SYRINGE 0.4 MG IV (14:17)
== END 2024-01-20 23:59 | disposition home or self-care (01) ==
LOC: RAD 11:35
PROVIDERS: PCP Student in an Organized Health Care Education/Training Program; Visit Provider Nurse Practitioner
DX: R07.89 Other chest pain (principal); R06.09 Other forms of dyspnea; I48.0 Paroxysmal atrial fibrillation; R79.89 Other specified abnormal findings of blood chemistry
CPT/HCPCS: 78452; 93017; 93018; A9502; J2785

== ENCOUNTER 2024-01-28 08:02 | Outpatient (CLI) | payer OTHER, SELFPAY ==
--- NOTE | 2024-01-28 08:07 | CT_ITS ---
FINAL REPORT TECHNIQUE: Postcontrast axial images of the chest were performed in a CTA protocol. This study was performed with techniques to keep radiation doses as low as reasonably achievable, (ALARA). Individualized dose reduction technique using automated exposure control or adjustment of mA and/or kV according to the patient's size were employed. CLINICAL HISTORY: elevated d-dimer, angina, dyspnea FINDINGS: The heart is normal in size. No adenopathy is identified. No pleural or pericardial effusion is identified. The thoracic aorta is normal in caliber with no focal aneurysm or dissection identified. There is no filling defect to suggest pulmonary embolism. No lung infiltrate or mass is identified. The images of the upper abdomen are unremarkable. IMPRESSION: No evidence for PE on this exam. Reviewed, Interpreted and Dictated by Delfin Reyes MD Transcribed by Stephani Botello Authenticated and [facility]
--- NOTE | 2024-01-28 08:07 | CA_ITS ---
APPROVED REPORT EXAM: Comprehensive 2D, Doppler, and color-flow Echocardiogram Assistant Tennis Coach: Staci Jones RT(R) Ht: 5 ft 11 in Wt: 190lbs BSA: 2.06 BP: 176/78 mmHg Indications: AFIB, CP, smoker, SOB, HTN, family history of HD. 2D Dimensions LVEF (Stubbs's) 58.30 % M: 52 - 72 LV Volume 112.60 mL M: 62 - 150 LV Volume Index 54.4 mL/m2 M: 34 - 74 LA Volume 29.50 mL LA Volume Index 14.25 mL/m2 (M/F) 16-34 EF AP4 54.70 % EF AP2 62.9 % EF BP 58.3 % GL Strain -17.3 % M-Mode Dimensions RVDd 2.15 cm (0.9-2.6) LA Diam 3.30 cm (1.9-4.0) LVDd 5.01 cm (3.5-5.7) LVDs 3.83 cm (3.5-5.7) IVSd 0.82 cm (0.6-1.1) PWd 0.93 cm (0.6-1.1) EF (Teich) 46.90% FS 23.60% EDV (Teich) 118.80 mL ESV (Teich) 63.10 mL LV Diastology E Decel Time 150 (160-240 msec) E/A Ratio 1.7 Mitral Valve MV E Max Sung. 76.0 (40-130 cm/s) MV A Velocity 45.0 (40-130 cm/s) E/A Ratio 1.69 MV PHT 44.0 ms Left Ventricle The left ventricle is normal size. The left ventricular systolic function is low normal. There is increased LV wall thickness. There is normal LV segmental wall motion. Diastolic function is indeterminate. LVEF is 50%. Right Ventricle Right ventricle is mildly dilated. The right ventricular systolic function is normal. Atria Left atrium is mildly dilated. Right atrium is mildly dilated. Color Doppler is indeterminate to evaluate for interatrial shunt in the setting of technically difficult study Aortic Valve Aortic valve is mildly thickened. There is no aortic valvular stenosis. Trace aortic regurgitation. Mitral Valve The mitral valve leaflets are mildly thickened. Mild mitral regurgitation. No evidence of mitral valve stenosis. Tricuspid Valve Tricuspid valve is grossly normal in structure and function. Trace tricuspid regurgitation. There is insufficient TR jet to estimate RVSP. Pulmonic Valve The pulmonary valve is normal in structure. Trace pulmonic regurgitation. Great Vessels The aortic root is normal in size. The ascending aorta is not well-visualized. IVC is normal in size and collapses >50% with inspiration. Pericardium There is no pericardial effusion. Other Information Study Quality: Fair Conclusion Low normal LV systolic function (LVEF 50%). Mild RV dilation with normal RV function. Biatrial dilation. Mild MR. Electronically signed by : Sammie Cesar MD 01/31/2024 00:37:33
[2024-01-28] MEDS: SODIUM CHLORIDE 0.9% 10ML SYR (RAD ONLY) 10 ML IV (08:44)
[2024-01-28] MEDS: 0.9 % SODIUM CHLORIDE 50 ML VIAL IV (08:44)
[2024-01-28] MEDS: IOPAMIDOL-370 (76%);100ML BOTTLE 80 ML IV (08:44)
== END 2024-01-28 23:59 | disposition home or self-care (01) ==
LOC: RAD 08:04
PROVIDERS: PCP Student in an Organized Health Care Education/Training Program; Visit Provider Nurse Practitioner
DX: R06.09 Other forms of dyspnea (principal); I10 Essential (primary) hypertension; R79.89 Other specified abnormal findings of blood chemistry; E87.5 Hyperkalemia; R07.89 Other chest pain
CPT/HCPCS: 71275; 93306; Q9967

== ENCOUNTER 2024-02-09 08:50 | Day surgery (SDC) | payer OTHER, SELFPAY ==
[2024-02-09] VITALS (12 sets, daily range): BP systolic 97–157; BP diastolic 56–93; PULSE 48–62; RESP 16–20; TEMP 36.9; O2SAT 93–100; BMI 26.9
--- NOTE | 2024-02-09 07:27 | IR_ITS ---
APPROVED REPORT Patient Location: Outpatient [facility] Attendant: IGOR Sol RT (R) PROCEDURES Left heart catheterization Left ventriculogram Selective coronary angiogram Attempted angioplasty of a chronically occluded dominant right coronary INDICATION Coronary artery disease, Angina pectoris, Chronically occluded right coronary artery Informed consent was obtained prior to the procedure. COMPLICATIONS None Estimated Blood Loss: Less than 10 mls TECHNIQUE One percent lidocaine used to anesthetize the right anterior aspect of the wrist. The right radial artery was accessed via the Seldinger technique. A 6 Ghanaian sheath was placed in the right radial artery. 2.5 mg of Verapamil, 800 mcg of nitroglycerin, 1mg Lidocaine and 5000 U Heparin were given through the arterial sheath. The 6 Ghanaian JL 3 guide catheter was also used to perform left heart catheterization, left ventriculogram and selective coronary angiogram. At the end the diagnostic angiogram therapeutic heparin was administered giving a therapeutic ACT and the guide catheter was placed in the right coronary artery followed by Choice PT extra-support wire placed into the chronic occlusion. The wire would not easily traverse the chronic occlusion. A 2 mm x 12 mm noncompliant balloon was then advanced over the wire and placed at the occlusion. The wire was advanced and the wire actually entered the pericardial space. At this point the apparatus was removed repeat angiography demonstrated no extravasation. 40 units of protamine was given and the case was terminated. The apparatus was removed the sheath was removed good hemostasis was achieved using TR banding patient was transferred to the postop putting in stable condition ANGIOGRAPHIC RESULTS The left main artery Has a distal 50% stenosis The left anterior descending artery Has proximal 30 to 40% stenosis with mid vessel 50 and 60% stenoses. A large first diagonal artery has proximal 50 and eccentric 70% stenoses. The circumflex artery Is small nondominant with proximal 50% stenosis The right coronary artery Is massively large and dominant and occluded at mid vessel. The vessel fills via [id number] collaterals The HERNÁNDEZ ventriculogram reveals Normal 60% The left ventricular end-diastolic pressure 10 mmHg IMPRESSION Coronary disease as described above Attempted angioplasty of a chronically occluded right coronary artery which was unsuccessful at revascularizing the right coronary Normal ejection fraction Normal LVEDP PLAN 1. Continue with medical management 2. Patient will be referred to [facility] CT surgery for evaluation of bypass surgery 3. Avoidance of tobacco products 4. Start high intensity statin along with aspirin 5. Maximize antianginal medications Electronically signed by : Torres Sandoval MD 02/09/2024 11:48:22
[2024-02-09 09:45] LABS: Chloride 108 mmol/L (98-107)
[2024-02-09 09:46] LABS: Potassium 3.6 mmoL/L (3.5-5.1); Sodium 141 mmol/L (136-145)
[2024-02-09 09:49] LABS: Anion Gap 9.6 mEq/L (5-15); Blood Urea Nitrogen 19 mg/dl (9-20); Carbon Dioxide 27 mmol/L (22.0-30.0); Creatinine Clearance Estimated 74 mL/min (50-200); Estimated Glomerular Filt Rate 56 ml/min (>60); GFR (African American) 68 ML/MIN (>60); Glucose 85 mg/dl (74-100)
[2024-02-09 09:55] LABS: Basophils # 0.1 K/mm3 (0-0.2); Basophils % 1.2 % (0.1-2.0); Eosinophils # 0.6 K/mm3 (0.0-0.4); Eosinophils % 6.2 % (0.1-12.0); Hematocrit 47.1 % (42.0-52.0); Hemoglobin 16.4 g/dL (14.1-18.0); Lymphocytes # 2.7 K/mm3 (0.7-4.5); Lymphocytes % 26.2 % (10-50); Mean Corpuscular HGB Conc 34.8 g/dL (31.8-35.4); Mean Corpuscular Hemoglobin 31.7 pg (27.0-31.2); Mean Corpuscular Volume 91.1 fl (80-94); Mean Platelet Volume 9.4 fl (7.4-10.4); Monocytes # 0.7 K/mm3 (0.1-1.0); Neutrophils # 6.1 K/mm3 (1.8-7.8); Neutrophils % 59.4 % (37.0-80.0); Platelet Count 165 K/mm3 (142-424); Red Blood Count 5.17 M/mm3 (4.60-6.20); Red Cell Distribution Width 14.2 % (11.5-17.5); White Blood Count 10.2 K/mm3 (4.8-10.8)
[2024-02-09] MEDS: HEPARIN 1,000 UNITS/500ML NS (CATH LAB) 3000 UNIT IV (11:02)
[2024-02-09] MEDS: MIDAZOLAM HCL 1MG/ML 5ML VIAL 1 MG IV (11:02)
[2024-02-09] MEDS: 0.9 % SODIUM CHLORIDE 500 ML 25 ML IV (11:02)
[2024-02-09] MEDS: LIDOCAINE 1% 10ML MDV 20 ML IJ (11:02)
[2024-02-09] MEDS: HEPARIN 1,000 UNITS/ML 10ML VIAL (CATH LAB) 10000 UNIT IV (11:02)
[2024-02-09] MEDS: diphenhydrAMINE 50MG/ML VIAL 50 MG IV (11:02)
[2024-02-09] MEDS: NITROGLYCERIN 800MCG/8ML SYR (CATH LAB) 800 MCG IA (11:03)
[2024-02-09] MEDS: VERAPAMIL 2.5MG/ML 2ML VIAL 2.5 MG IV (11:03)
[2024-02-09] MEDS: FENTANYL 100MCG/2ML VIAL 50 MCG IV (11:03)
[2024-02-09] MEDS: IOPAMIDOL-370 (76%);100ML BOTTLE 60 ML IV (13:04)
--- NOTE | 2024-02-09 13:31 | CA_ITS ---
APPROVED REPORT EXAM: Limited 2D Echocardiogram Dioramist: RT Glory(R) Ht: 5 ft 11 in Wt: 190lbs BSA: 2.06 BP: 121/71 mmHg Indications: post heart cath today, assess for effusion, CP Other Information Study Quality: Fair Conclusion This is a limited TTE to evaluate for pericardial effusion in the setting of postcardiac catheterization. Limited windows were obtained. There is a trivial, anterior pericardial effusion present (noted on PLAX view). No echo indications of tamponade. No evidence of chamber collapse. Electronically signed by : Sammie Cesar MD 02/10/2024 11:23:13
[2024-02-09 15:51] LABS: CATHL Activated Clotting Time > 400 SEC (74-125)
== END 2024-02-09 14:30 | disposition home or self-care (01) ==
PROVIDERS: PCP Student in an Organized Health Care Education/Training Program; Visit Provider Internal Medicine
DX: I25.118 Atherosclerotic heart disease of native coronary artery with other forms of angina pectoris (principal); I77.1 Stricture of artery; R79.89 Other specified abnormal findings of blood chemistry; E87.5 Hyperkalemia; R07.89 Other chest pain; I25.82 Chronic total occlusion of coronary artery; F17.210 Nicotine dependence, cigarettes, uncomplicated; Z79.899 Other long term (current) drug therapy; I48.0 Paroxysmal atrial fibrillation; Z79.01 Long term (current) use of anticoagulants; Z53.09 Procedure and treatment not carried out because of other contraindication; I10 Essential (primary) hypertension
CPT/HCPCS: 80048; 85025; 85347; 92928; 93308; 93458; 93459; 99152; 99153; C1725; C1769; C9600; J1200; J1644; J2250; J3010; Q9967

== ENCOUNTER 2024-07-13 10:08 | Outpatient (CLI) | payer OTHER, SELFPAY ==
[2024-07-13 10:27] LABS: Basophils # 0.1 K/mm3 (0-0.2); Basophils % 1.1 % (0.1-2.0); Eosinophils # 1.5 Kmm3 (0.0-0.4); Eosinophils % 12.5 % (0.1-12.0); Hematocrit 48.2 % (42.0-52.0); Hemoglobin 15.8 g/dL (14.1-18.0); Immature Granulocytes # 0.05 10^3uL; Immature Granulocytes % 0.4 %; Lymphocytes # 2.8 K/mm3 (0.7-4.5); Lymphocytes % 22.4 % (10-50); Mean Corpuscular HGB Conc 32.8 g/dL (31.8-35.4); Mean Corpuscular Hemoglobin 28.9 pg (27.0-31.2); Mean Corpuscular Volume 88.1 fl (80-94); Mean Platelet Volume 11.8 fl (7.4-10.4); Monocytes # 0.9 K/mm3 (0.1-1.0); Monocytes % 7.2 % (1.7-9.3); Neutrophils # 6.9 K/mm3 (1.8-7.8); Neutrophils % 56.4 % (37.0-80.0); Nucleated Red Blood Cells # 0 10^3/uL; Nucleated Red Blood Cells % 0 %; Platelet Count 195 K/mm3 (142-424); Red Blood Count 5.47 M/mm3 (4.60-6.20); Red Cell Distribution Width 15.3 % (11.5-17.5); Red Cell Distribution Width-SD 49.4 fL; White Blood Count 12.3 K/mm3 (4.8-10.8)
[2024-07-13 10:48] LABS: Alanine Aminotransferase 32 U/L (12-78); Albumin Level 4.4 g/dl (3.5-5.0); Alkaline Phosphatase 96 U/L (38-126); Anion Gap 6.5 mEq/L (5-15); Aspartate Amino Transferase 22 U/L (17-59); Bilirubin,Direct 0.1 mg/dl (0.0-0.4); Bilirubin,Indirect 0.5 mg/dL (0.0-0.9); Bilirubin,Total 0.6 mg/dl (0.2-1.3); Bilirubin,Unconjugated 0.5 mg/dL (0.0-1.1); Blood Urea Nitrogen 16 mg/dl (9-20); Calcium 9.5 mg/dl (8.4-10.2); Carbon Dioxide 30 mmol/L (22.0-30.0); Chloride 108 mmol/L (98-107); Chol/HDL Ratio 2.2 (1-3.5); Cholesterol 92 mg/dl (140-200); Estimated Glomerular Filt Rate 68 ml/min (>60); GFR (African American) 82 ML/MIN (>60); Glucose 93 mg/dl (74-100); HDL Cholesterol 41 mg/dl (40-60); Potassium 3.5 mmoL/L (3.5-5.1); Sodium 141 mmol/L (136-145); Total Protein,Serum 6.4 g/dl (6.3-8.2); Triglycerides 64 mg/dl (30-150); VLDL Cholesterol 13 mg/dL (0-40)
[2024-07-13 11:00] LABS: Direct LDL Cholesterol 32.53 mg/dL (100-129)
[2024-07-13 11:07] LABS: Free T4 (Free Thyroxine) 1.37 ng/dl (0.78-2.19)
[2024-07-13 11:19] LABS: Thyroid Stimulating Hormone 3.36 uIU/mL (0.465-4.68)
== END 2024-07-13 23:59 | disposition home or self-care (01) ==
LOC: LAB 10:10
PROVIDERS: Visit Provider Physician Assistant
DX: I31.39 Other pericardial effusion (noninflammatory) (principal); I25.810 Atherosclerosis of coronary artery bypass graft(s) without angina pectoris; R06.09 Other forms of dyspnea; I48.0 Paroxysmal atrial fibrillation; I10 Essential (primary) hypertension; E87.5 Hyperkalemia; Z95.1 Presence of aortocoronary bypass graft
CPT/HCPCS: 36415; 80048; 80061; 80076; 83735; 84439; 84443; 85025

== ENCOUNTER 2024-11-02 09:23 | Outpatient (CLI) | payer OTHER, SELFPAY ==
--- OUTSIDE RECORDS SUMMARY | 2024-10-19 14:30 | XMS_ITS | Encounter Summary ---
Author Organization [place] [address] Care Team Providers Care Prototype Machinist Name Role Phone Nannette Schmidt DO Primary Care Provider [phone] Reason for Referral * GI Procedure (Routine) - Pending Review Specialty Diagnoses / Procedures Referred By Contac t Referred To Contact Diagnoses Rectal bleeding Procedures AMB COLON W ANESTH COMM ORDER Herminio Rosales MD [address] [place] [address] Phone: tel: fax: Referral ID Status Reason Start Date Expiration Date V isits Requested Visits Authorized [id number] Pending Review 10/19/2024 10/19/2025 1 1 Reason for Visit * Reason Comments Constipation Last bm Wednesday, bloo d, denies mucus, brb, when he wipes and mixed in the stool, last colon 10 years ago Rectal Bleeding * Consultation (Routine) - Authorization Not Needed Specialty Diagnoses / Procedures Referred By Contac t Referred To Contact Diagnoses Screening for colon cancer Procedures AK OFFICE/OUTPATIENT NEW MODERATE MDM 45 MINUTES Nannette Schmidt DO [address] [place] [address] Phone: tel: fax: [facility] [address], 3rd [place] [address] Phone: tel: fax: Referral ID Status Reason Start Date Expiration Date Visits Requested Visits Authorized [id number] Authorization Not Needed 09/12/2024 03/15/2026 99 99 Encounter Details Date Type Department Care Team (Late st Contact Info) Description 10/19/2024 2:30 PM EDT Office Visit [facility] [address] [facility] [address], [address] [place] [address] Herminio Rosales MD [address] [place] [address] Constipation, chronic (Primary Dx); Rectal bleeding Social History Tobacco Use Types Packs/Day Years Used Date Smoking Tobacco: Every Day Cigarettes 0.5 48 Smokeless Tobacco: Never Alcohol Use Standard Drinks/Week Comments No 0 (1 standard drink = 0.6 oz pur e alcohol) PHQ-2 Answer Date Recorded PHQ-2 Total Score 0 06/02/2023 Sexually Active Control Partners Comments Not Currently Sex and Gender Information Value Date Recorded Sex Assigned at Not on file Legal Sex Male 7:54 PM EDT Gender Identity Not on file Sexual Orientation Not on file documented as of this encounter Last Filed Vital Signs Vital Sign Reading Time Taken Comments Blood Pressure 126/80 10/19/2024 1:39 PM EDT Pulse - - Temperature - - Respiratory Rate - - Oxygen Saturation - - Inhaled Oxygen Concentration - - Weight 80.7 kg (178 lb) 10/19/2024 1:39 PM EDT Height 180.3 cm (5' 11 ) 10/19/2024 1:39 PM EDT Body Mass Index 24.83 10/19/2024 1:39 PM EDT documented in this encounter Functional Status * Is the person deaf or does he/she have serious difficulty hearing? Answer Date of Assessment Author No 04/20/2014 4:01 PM Hero Vera RN * Is the person blind or does he/she have serious difficulty seeing even when wearing glasses? Answer Date of Assessment Author No 04/20/2014 4:01 PM Hero Vera RN * Does this person have serious difficulty walking or climbing stairs? Answer Date of Assessment Author No 04/20/2014 4:01 PM Hero Vera JOSÉ LUIS * Does this person have difficulty dressing or bathing? Answer Date of Assessment Author No 04/20/2014 4:01 PM Hero Vera RN * Because of a physical, mental or emotional condition, does this person have difficulty doing errands alone such as visiting a doctor's office or shopping? Answer Date of Assessment Author No 04/20/2014 4:01 PM Hero Vera RN documented as of this encounter Mental Status * Because of a physical, mental or emotional condition, does this person have serious difficulty concentrating, remembering or making decisions? Answer Entry Date Author No 04/20/2014 4:01 PM Hero Vera RN documented in this encounter Ordered Prescriptions Prescription Sig Dispense Quantity Refills Last Filled Start Date End Date polyethylene glycol (GLYCOLAX) 17 gram/dose Oral PowderIndications: Constipation, chronic 17-34gm po daily. Titrate to soft bowel movement daily, as directed. 510 g 3 10/19/2024 polyethylene glycol (GOLYTELY) 236-22.74-6.74 -5.86 gram Oral Recon SolnIndications:raisa wel evacuation Take 4,000 mL by mouth once for 1 dose. Indications: emptying of the bowel 4000 mL 10/19/2024 documented in this encounter Progress Notes * Herminio Rosales MD - 10/19/2024 2:30 PM EDT [facility] Note New Patient Primary Care Physician: Nannette Schmidt DO REASON FOR CONSULT / CHIEF COMPLAINT: Chief Complaint Patient presents with Constipation Last bm Wednesday, blood, denies mucus, brb, when he wipes and mixed in the stool, last colon 10 yearsago Rectal Bleeding Assessment & Plan Constipation, chronic Patient reports severe constipation and can often go weeks between bowel movements. I recommended afull GoLytely cleanout, followed by initiation of MiraLAX once to twice daily. If he still has constipation after this, we will discuss alternative such as Linzess. Orders: polyethylene glycol (GOLYTELY) 236-22.74-6.74 -5.86 gram Oral Recon Soln; Take 4,000 mL by mouth once for 1 dose. Indications: emptying of the bowel polyethylene glycol (GLYCOLAX) 17 gram/dose Oral Powder; 17-34gm po daily. Titrate to soft bowel movement daily, as directed. Rectal bleeding Will schedule for colonoscopy. Suspect outlet bleeding, given description of bowel movements and dyschezia. Patient does take Eliquis for A-fib, and this will need to be held 48 hours prior to procedure. Orders: AMB COLON W ANESTH COMM ORDER Return in about 6 months (around 04/21/2025). VISIT ORDERS Orders Placed This Encounter Procedures Colonoscopy w/ Anesthesia Comm Order Thank you Nannette Schmidt DO for asking me to participate in the care of Daron Rooney Jr.. Please let me know if you have any additional questions or concerns or if there is anything else I can doto assist in the care of this patient. Herminio Rosales MD [facility] [place] [facility] HISTORY OF PRESENT ILLNESS: Daron Rooney Jr. is a 64 y.o. male who has a past medical history of Acute stomach ulcer (04/19/2014), Duodenitis, Elevated hematocrit (04/16/2022), Gastritis and duodenitis (04/19/2014), GERD (gastroesophageal reflux disease), Ileus (HCC), Inguinal hernia recurrent bilateral, Prostate disorder, PUD (peptic ulcer disease) (04/08/2014), and Recurrent right inguinal hernia (05/03/2014). being seen today for Constipation (Last bm Wednesday, blood, denies mucus, brb, when he wipes and mixed in the stool, last colon 10 years ago ) and Rectal Bleeding Patient last seen by GI in [address] Barkley. Endorsed abdominal pain and bloating. He was given miralax and nortriptyline. Abdominal US was ordered, which was normal. He was previously found to have gastric and duodenal ulcers on EGD 2014, which healed on subsequent EGD two months later, with PPI. Colonoscopy at that time was normal as well. Today, his main complaint is his constipation and rectal bleeding. He reports severe constipation, often going weeks between bowel movements, and when he finally does have a bowel movement he usuallypasses firm hard stool and require straining. He often will see blood in his stool, sometimes filling the toilet bowl. He does report some dyschezia. He denies any weight loss. Diet: Drinks lots of mountain dew Review of Systems: 10 point review of systems obtained and negative aside from those mentioned above. Family History: Father had colostomy, may have had colon cancer (he is unsure). Patient denies any family history of crohn's disease or ulcerative colitis. 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 Relevant Labs: Lab Results Component Value Date/Time WBC 10.6 (H) 07/30/2023 02:53 PM WBC 13.6 (H) 11/18/2016 06:05 AM RBC 5.15 07/30/2023 02:53 PM RBC 4.89 11/18/2016 06:05 AM PLT 188 07/30/2023 02:53 PM PLT 228 11/18/2016 06:05 AM Relevant Imaging: Reviewed. Prior Endoscopies: Colonoscopy DATE OF PROCEDURE: 02/02/2017 INDICATIONS FOR PROCEDURE: 1. Rectal bleed. 2. Change in the pattern of bowel movement. PROCEDURE: With the patient in the left lateral position and after sedation with 50 mg of Demerol and 6 mg of Versed IV, the Olympus video colonoscope was inserted into the rectum and carefully advanced into the cecum. Diverticulosis of the left colon was noted. A 1 cm flat polyp noted in the sigmoid, which was entirely removed with the biopsy forceps technique. Careful inspection revealed no other abnormalities. Procedure was terminated without complication. IMPRESSION: 1. Sigmoid polyp. 2. Diverticulosis of the colon. Weight: Wt Readings from Last 10 Encounters: 10/19/24 178 lb (80.7 kg) 08/04/24 176 lb 9.6 oz (80.1 kg) 06/29/24 176 lb (79.8 kg) 01/06/24 190 lb (86.2 kg) 12/30/23 188 lb (85.3 kg) 12/23/23 190 lb (86.2 kg) 07/30/23 180 lb 6.4 oz (81.8 kg) 06/02/23 180 lb (81.6 kg) 06/25/22 176 lb (79.8 kg) 06/22/22 176 lb (79.8 kg) PHYSICAL EXAMINATION: BP 126/80 Ht 5' 11 (1.803 m) Wt 178 lb (80.7 kg) BMI 24.83 kg/m?? CONSTITUTIONAL: No apparent distress, and appears stated age. HEENT: AT/NC, MMM RESPIRATORY: No increased work of breathing, no cough, no wheezing GI: Soft, mild generalized abdominal pain to deep palpation, non-distended MUSCULOSKELETAL: There is no redness, warmth, or swelling of the visualized joints. SKIN: Normal skin color, texture, turgor, no jaundice. NEUROLOGIC: No overt neurological defects. No asterixis. PAST MEDICAL HISTORY: Past Medical History: Diagnosis Date Acute stomach ulcer 04/19/2014 Duodenitis Elevated hematocrit 04/16/2022 Gastritis and duodenitis 04/19/2014 GERD (gastroesophageal reflux disease) Ileus (HCC) Inguinal hernia recurrent bilateral Prostate disorder pt states diagnosed with prostate enlargement PUD (peptic ulcer disease) 04/08/2014 Recurrent right inguinal hernia 05/03/2014 Past Surgical History: Procedure Laterality Date APPENDECTOMY age 23 CARDIAC SURGERY 4 bypass FOOT SURGERY 03/2017 bone spur or extra bone on medial foot per pt HERNIA REPAIR x's 7 - inguinal - last 2014. KNEE ARTHROSCOPY 12/21/2011 RIGHT KNEE ARTHROSCOPY PARTIAL MEDIAL MENISCECTOMY CHONDROPLASTY; Surgeon: Jr Del Castillo MD; Location: [facility] MAIN OR; Service: Orthopedics UPPER GASTROINTESTINAL ENDOSCOPY N/A 04/19/2014 ESOPHAGOGASTRODUODENOSCOPY with biopsy; Surgeon: Ramez Barkley MD; Location: [facility] ENDOSCOPY; Service: Endoscopy MEDICATIONS: Current Outpatient Medications Medication apixaban (ELIQUIS) 5 mg Oral Tablet aspirin 81 mg Oral Tablet, Chewable atorvastatin (LIPITOR) 80 mg Oral Tablet Calcium Carbonate-Vitamin D3 600 mg-5 mcg (200 unit) Oral Tablet fluticasone propionate (FLONASE) 50 mcg/actuation Nasl [place], Suspension folic acid (FOLVITE) 1 mg Oral Tablet hydrOXYzine (VISTARIL) 25 mg Oral Capsule loratadine (CLARITIN) 10 mg Oral Tablet losartan (COZAAR) 25 mg Oral Tablet metoprolol (LOPRESSOR) 50 mg Oral Tablet primidone (MYSOLINE) 50 mg Oral Tablet amiodarone (PACERONE) 200 mg Oral Tablet polyethylene glycol (GLYCOLAX) 17 gram/dose Oral Powder polyethylene glycol (GOLYTELY) 236-22.74-6.74 -5.86 gram Oral Recon Soln polyethylene glycol (GOLYTELY) 236-22.74-6.74 -5.86 gram Oral Recon Soln No current facility-administered medications for this visit. Herminio Rosales MD Portions of this note were generated using voice dictation software and may contain unintentional errors. documented in this encounter Miscellaneous Notes * Patient Instructions - Herminio Rosales MD - 10/19/2024 2:30 PM EDT Please drink the entire jug of Golytely laxative to clear out the bowel. Pick a day when you do notneed to go anywhere. After you clear out, start taking miralax and titrate dose as below: Start taking miralax for your constipation symptoms. Start by taking one capful of the miralax powder each day. Mix it into your drink (water, juice, coffee) and drink shortly after to avoid congealing the texture. If you still have constipation, you can add an extra capful to your drink. Some people require up to 4 capfuls a day to have a healthy soft bowel movement. On the other hand, one capful may be too much for you. If you have diarrhea with one capful, decrease to a half a capful. Please schedule your colonoscopy. documented in this encounter Plan of Treatment Upcoming Encounters Date Type Department Care Team (Late st Contact Info) Description 01/11/2025 2:35 PM EST Office Visit [facility] [address] [place] [address] Clovis Fallon, YARD ASSOCIATE [address] [facility] [address] [place] [address] documented as of this encounter Goals Goal Patient Goal Type Associated Problems Recent Progress Patient-Stated? Author Blood Pressure < 140/90 Blood Pressure 148/84(2024 12:56 PM EDT) No Nannette Schmidt, DO Maintain a healthy diet, exercise regularly and maintain an ideal body weight General No Melly Guillen CCMA Stay Tobacco Free Lifestyle No Melly Guillen CCMA documented as of this encounter Visit Diagnoses Diagnosis Constipation, chronic- Primary Unspecified constipation Rectal bleeding Hemorrhage of rectum and anus documented in this encounter Orders Nursing Count Last Ordered Date First Orde red Date AMB COLON W ANESTH COMM ORDER 1 10/19/2024 documented in this encounter Care Teams Prototype Machinist Relationship Specialty Start Date End Date Nannette Schmidt DO Master [address] [place] [id number] PCP - General Family Medicine 05/28/23 documented as of this encounter
--- OUTSIDE RECORDS SUMMARY | 2024-10-26 07:42 | XMS_ITS | Encounter Summary ---
Author [place] [address] Care Team Providers Care Motor Scooter Mechanic Name Role Phone Nannette Schmidt DO Primary Care Provider [phone] Reason for Referral * Surgical (Routine) - SEP Denied Specialty Diagnoses / Procedures Referred By Contac t Referred To Contact Gastroenterology Diagnoses Rectal bleeding Procedures COLONOSCOPY NH COLONOSCOPY FLX DX W/COLLJ SPEC WHEN PFRMD NH COLONOSCOPY FLX W/ENDOSCOPIC MUCOSAL RESECTION NH COLSC FLX W/RMVL OF TUMOR POLYP LESION SNARE TQ Herminio Rosales MD [address] [place] [address] Phone: tel: fax: Referral ID Status Reason Start Date Expiration Date V isits Requested Visits Authorized [id number] SEP Denied 10/19/2024 10/19/2025 1 1 Reason for Visit * Surgical (Routine) - SEP Denied Specialty Diagnoses / Procedures Referred By Contac t Referred To Contact Gastroenterology Diagnoses Rectal bleeding Procedures COLONOSCOPY NH COLONOSCOPY FLX DX W/COLLJ SPEC WHEN PFRMD NH COLONOSCOPY FLX W/ENDOSCOPIC MUCOSAL RESECTION NH COLSC FLX W/RMVL OF TUMOR POLYP LESION SNARE TQ Herminio Rosales MD [address] [place] [address] Phone: tel: fax: Referral ID Status Reason Start Date Expiration Date V isits Requested Visits Authorized [id number] SEP Denied 10/19/2024 10/19/2025 1 1 Encounter Details Date Type Department Care Team (Latest Contact Info) Description 10/26/2024 7:42 AM EDT - 10/26/2024 11:59 PM EDT Hospital Encounter [facility] [address] [facility] [place] [address] Herminio Rosales MD [address] [place] [address] Justyn Roach MD [address] [facility] [address] [place] [address] Simona Munroe CRNA [address] [facility] [place] [address] Rectal bleeding Discharge Disposition: Home or Self Care Social History Tobacco Use Types Packs/Day Years [...] Sign Reading Time Taken Comments Blood Pressure 148/84 10/26/2024 12:56 PM EDT Pulse 48 10/26/2024 12:56 PM EDT Temperature 36.2 C (97.2 F) 10/26/2024 12:56 PM EDT Respiratory Rate 16 10/26/2024 12:5 6 PM EDT Oxygen Saturation 96% 10/26/2024 12: 56 PM EDT Inhaled Oxygen Concentration - - Weight 79.7 kg (175 lb 11.2 oz) 10/26/2024 8:04 AM EDT Height 180.3 cm (5' 11 ) 10/26/2024 8:04 AM EDT Body Mass Index 24.51 10/26/2024 8:04 AM EDT documented in this encounter Functional Status [...] Vera RN * Does this person have difficulty dressing [...] Hero Vera RN documented in this encounter Discharge Instructions * Discharge Instructions* Rachel Burch RN - 10/26/2024 8:16 AM EDT Images from the original note were not included. +++++++++++++++++++++++++++++++++++++++++++++++++++++++++++++++++++ [facility] Discharge Instructions - Following Anesthesia We appreciate the opportunity to care for you today! Here are a few reminders as you head home: A responsible adult, 18 years or older must be in attendance until tomorrow morning. Rest quietly today. May resume usual diet as tolerated or as directed by your surgeon. Do not drive or operate any machinery until tomorrow morning or as instructed. Do not make any legal or important decisions for the next 24 hours. Do not drink alcoholic beverages or take sleeping pills for 24 hours unless otherwise directed. If you received a nerve block for post-operative pain control, protect your blocked arm/leg. It maybe numb. Carefully pad your limb to prevent pressure sores and other injuries. Be careful with applying cold/warm to the blocked limb. Numbness will alter the sensation of the limb and could damage your skin if you cannot correctly feel the temperature. If you have questions or concerns regarding your anesthesia experience, please call our office at . Get Well Soon! [facility] +++++++++++++++++++++++++++++++++++++++++++++++++++++++++++++++++++ [facility] Discharge Instructions - Following Endoscopy A responsible adult, 18 years or older must be in attendance until the next A.M. Rest quietly today. May resume usual diet. Do not drive or operate any machinery until the next A.M., or as instructed. No alcoholic beverages for 24 hours. Do not make any legal or important decisions for the next 24 hours. Call the physician???s office for a follow-up visit Patient discharged to the care of family/friend ADDITIONAL INSTRUCTIONS: Call Dr Rosales at [phone] if the following occurs: Colonoscopy: Severe abdominal pains and swelling (mild abdominal cramps and gas pains can be expected), nausea and vomiting, rectal bleeding (with biopsy or polyps a small amount of blood can be expected), body temp. over 101 degrees, chills. Medications Reviewed Copy of Discharge Medication Instruction Sheet Given * Attachments The following attachments cannot be sent through Care Everywhere. * Colon polyps ([place]ish) documented in this encounter Medications at Time of Discharge aspirin 81 mg Oral Tablet, ChewableIndication s:Coronary artery disease involving [place] coronary artery of [place] heart without angina pectoris,Paroxysma l atrial fibrillation (HCC) Take 1 Tablet by mouth daily for 360 days. 90 Tablet 3 06/29/2024 6 atorvastatin (LIPITOR) 80 mg Oral TabletIndications: Coronary artery disease involving [place] coronary artery of [place] heart without angina pectoris Take 1 Tablet by mouth nightly for 360 days. 90 Tablet 3 06/29/2024 Calcium Carbonate-Vitamin D3 600 mg-5 mcg (200 unit) Oral TabletIndications: Vitamin D deficiency TAKE 1 TABLET BY MOUTH TWICE A DAY 60 Tablet 09/20/2023 fluticasone propionate (FLONASE) 50 mcg/actuation Nasl Newton, SuspensionIndicati ons:Nasal congestion 2 Sprays by Nasal route daily. 16 mL 2 06/29/2024 folic acid (FOLVITE) 1 mg Oral TabletIndications: Folic acid deficiency TAKE 1 TABLET BY MOUTH EVERY DAY 30 Tablet 10/24/2024 hydrOXYzine (VISTARIL) 25 mg Oral Capsule TAKE 1 CAPSULE BY MOUTH EVERY DAY AT NIGHT 30 Capsule 10/19/2024 loratadine (CLARITIN) 10 mg Oral TabletIndications: Nasal congestion TAKE 1 TABLET BY MOUTH EVERY DAY 30 Tablet 2 10/20/2024 losartan (COZAAR) 25 mg Oral TabletIndications: Primary hypertension 2024 metoprolol (LOPRESSOR) 50 mg Oral TabletIndications: Coronary artery disease involving [place] coronary artery of [place] heart without angina pectoris,Paroxysma l atrial fibrillation (HCC),Primary hypertension Take 25 mg by mouth. 03/15/2024 primidone (MYSOLINE) 50 mg Oral TabletIndications: Essential tremor Take 1 Tablet by mouth 2 times daily. (Morning and afternoon) 60 Tablet 5 08/04/2024 apixaban (ELIQUIS) 5 mg Oral Tablet 5 mg. 12/18/2023 polyethylene glycol (GLYCOLAX) 17 gram/dose Oral PowderIndications: Constipation, chronic 17-34gm po daily. Titrate to soft bowel movement daily, as directed. 510 g 3 10/19/2024 polyethylene glycol (GOLYTELY) 236-22.74-6.74 -5.86 gram Oral Recon Soln Take as directed by Doctors Office 4000 mL 10/19/2024 documented as of this encounter Discharge Disposition Disposition Code Departure Means Destination Home or Self Care documented in this encounter H&P Notes * Herminio Rosales MD - 10/26/2024 9:00 AM EDT [facility] SEP Gastroenterology Pre-Procedural History and Physical Primary Care Physician: Nannette Schmidt DO Pre-Operative Diagnosis: Constipation, Rectal bleeding Indication(s) For Procedure: same Procedure Planned: Colonoscopy HISTORY OF PRESENT ILLNESS: Daron Rooney Jr. is a 64 y.o. male who has a past medical history of Acute stomach ulcer (04/19/2014), Duodenitis, Elevated hematocrit (04/16/2022), Gastritis and duodenitis (04/19/2014), GERD (gastroesophageal reflux disease), Ileus (HCC), Inguinal hernia recurrent bilateral, Prostate disorder, PUD (peptic ulcer disease) (04/08/2014), and Recurrent right inguinal hernia (05/03/2014). who presents for the above procedure(s). Patient has been on anticoagulant(s)/antiplatelet(s) - baby aspirin (which has not been held) and apixaban (Eliquis) (which has been held). Past Medical History: Diagnosis Date Acute stomach [...] CHONDROPLASTY; Surgeon: Jr Del Castillo MD; Location: [facility] MAIN OR; Service: Orthopedics UPPER GASTROINTESTINAL ENDOSCOPY N/A 04/19/2014 ESOPHAGOGASTRODUODENOSCOPY with biopsy; Surgeon: Ramez Barkley MD; Location: [facility] ENDOSCOPY; Service: Endoscopy Medications: Current Outpatient Medications on File Prior to Encounter Medication Sig Dispense Refill amiodarone (PACERONE) 200 mg Oral Tablet Take by mouth. (Patient not taking: Reported on 10/19/2024) apixaban (ELIQUIS) 5 mg Oral Tablet 5 mg. aspirin 81 mg Oral Tablet, Chewable Take 1 Tablet by mouth daily for 360 days. 90 Tablet 3 atorvastatin (LIPITOR) 80 mg Oral Tablet Take 1 Tablet by mouth nightly for 360 days. 90 Tablet 3 Calcium Carbonate-Vitamin D3 600 mg-5 mcg (200 unit) Oral Tablet TAKE 1 TABLET BY MOUTH TWICE A DAY60 Tablet 0 fluticasone propionate (FLONASE) 50 mcg/actuation Nasl Newton, Suspension 2 Sprays by Nasal route daily. 16 mL 2 folic acid (FOLVITE) 1 mg Oral Tablet TAKE 1 TABLET BY MOUTH EVERY DAY 30 Tablet 0 hydrOXYzine (VISTARIL) 25 mg Oral Capsule TAKE 1 CAPSULE BY MOUTH EVERY DAY AT NIGHT 30 Capsule 0 loratadine (CLARITIN) 10 mg Oral Tablet TAKE 1 TABLET BY MOUTH EVERY DAY 30 Tablet 2 losartan (COZAAR) 25 mg Oral Tablet metoprolol (LOPRESSOR) 50 mg Oral Tablet Take 25 mg by mouth. polyethylene glycol (GLYCOLAX) 17 gram/dose Oral Powder 17-34gm po daily. Titrate to soft bowel movement daily, as directed. 510 g 3 polyethylene glycol (GOLYTELY) 236-22.74-6.74 -5.86 gram Oral Recon Soln Take as directed by Doctors Office 4000 mL 0 primidone (MYSOLINE) 50 mg Oral Tablet Take 1 Tablet by mouth 2 times daily. (Morning and afternoon) 60 Tablet 5 No current facility-administered medications on file prior to encounter. Allergies: No Known Allergies Family History Problem Relation Age of Onset Diabetes Mother Other Mother lung surgery Other (influenza) Mother Other (morphine allegry - caused ) Mother Breast Cancer Mother Cardiomyopathy Mother COPD Mother Atrial fibrillation Father Other (gi issue) Father lost 7 inches of intestine at age 7 No Known Problems Sister No Known Problems Sister No Known Problems Brother Colon Cancer Neg Hx Esophageal Cancer Neg Hx Liver Cancer Neg Hx Liver Disease Neg Hx Rectal Cancer Neg Hx Social History Socioeconomic History Marital status: Spouse name: Not on file Number of children: Not on file Years of education: Not on file Highest education level: Not on file Occupational History Not on file Tobacco Use Smoking status: Every Day Current packs/day: 0.50 Average packs/day: 0.5 packs/day for 48.0 years (24.0 ttl pk-yrs) Types: Cigarettes Smokeless tobacco: Never Vaping Use Vaping status: Never Used Substance and Sexual Activity Alcohol use: No Drug use: No Sexual activity: Not Currently Other Topics Concern Not on file Social History Narrative Lives alone. . Has a black cat. Has good family support. Social Drivers of Health Financial Resource Strain: Not on file Food Insecurity: No Food Insecurity (03/09/2024) Received from [facility] Hunger Vital Sign Worried About Running Out of Food in the Last Year: Never true Ran Out of Food in the Last Year: Never true Transportation Needs: No Transportation Needs (03/09/2024) Received from [facility] PRAPARE - Transportation Lack of Transportation (Medical): No Lack of Transportation (Non-Medical): No Physical Activity: Not on file Stress: Not on file Social Connections: Not on file Intimate Partner Violence: Not At Risk (03/09/2024) Received from [facility] Humiliation, Afraid, Rape, and Kick questionnaire Fear of Current or Ex-Partner: No Emotionally Abused: No Physically Abused: No Sexually Abused: No Housing Stability: Unknown (03/09/2024) Received from [facility] Housing Stability Vital Sign Unable to Pay for Housing in the Last Year: No Number of Times Moved in the Last Year: Not on file Homeless in the Last Year: No PHYSICAL EXAM: Vitals: There were no vitals taken for this visit. CONSTITUTIONAL: Awake, alert, cooperative, no apparent distress ENT: MMM NECK: supple, symmetrical, trachea midline LUNGS: normal respiratory effort CARDIOVASCULAR: regular rate and rhythm ABDOMEN: soft, non-distended, non-tender MUSCULOSKELETAL: there is no redness, warmth, or swelling of the visualized joints NEUROLOGIC: awake and alert SKIN: normal skin color, no visualized rashes DATA: Lab Results Component Value Date WBC 10.6 (H) 07/30/2023 HGB 15.8 07/30/2023 HCT 47.5 07/30/2023 PLT 188 07/30/2023 CHOLESTEROL 187 06/02/2023 TRIG 170 (H) 06/02/2023 HDL 36 (L) 06/02/2023 LDLCALC 121 (H) 06/02/2023 ALT 14 07/30/2023 AST 11 07/30/2023 NA 144 10/05/2023 K 3.8 10/05/2023 CL 104 10/05/2023 CALCIUM 9.3 10/05/2023 BUN 18 10/05/2023 CREATININE 1.42 (H) 10/05/2023 GFRCKDEPI 56 (L) 10/05/2023 CO2 27 10/05/2023 PSA 2.90 06/02/2023 INR 1.04 12/23/2017 GLU 88 10/05/2023 HGBA1C 5.6 07/30/2023 TSHREFLEX 1.130 06/02/2023 [id number] 20.3 (L) 07/30/2023 Lab Results Component Value Date INR 1.04 12/23/2017 INR 0.94 12/16/2016 Last Oral Intake: Yesterday Previous Anesthesia Reaction: no Pre-Procedure Assessment: Risks, benefits, potential complications (including but not limited to missed lesions, sedation, bleeding and perforation) and alternatives were discussed with the patient or patient's legally authorized phone representative. The patient's pre-procedural physical assessment indicates that the patient is suitable for and agrees to the planned sedation and procedure. Cardiovascular and Vital signs Stable: yes Adequate/Patient Oral Airway yes ASA: 3 Mallampati: 2 ASSESSMENT / PLAN: Daron Rooney Jr. is a 64 y.o. male who presents for the above specified procedure. Herminio Rosales MD documented in this encounter Plan of Treatment Upcoming Encounters Date Type Department Care Team (Late st Contact Info) Description 01/11/2025 2:35 PM EST Office Visit SEP Neurology [facility] [address] [place] [address] Clovis Fallon, DRAMATIC AGENT [address] [facility] [address] [place] [address] documented as of this encounter Goals Goal Patient Goal Type Associated Problems Recent Progress Patient-Stated? Author Blood Pressure < 140/90 Blood Pressure 148/84(2024 12:56 PM EDT) No Nannette Schmidt, DO Maintain a healthy diet, exercise regularly and maintain an ideal body weight General No Melly Guillen CCMA Stay Tobacco Free Lifestyle No Melly Guillen CCMA documented as of this encounter Procedures Procedure Name Priority Date/Time Associated Diagnosis Comments COLONOSCOPY Routine 10/26/2024 12:24 PM EDT Rectal bleeding PATHOLOGY TISSUE REQUEST Routine 10/26/2024 12:15 PM EDT Rectal bleeding documented in this encounter Results * COLONOSCOPY (10/26/2024 12:24 PM EDT) Anatomical Region Laterality Modality Endoscopy Narrative 10/26/2024 12:26 PM EDT Table formatting from the original result was not included. Findings Pancolonic diverticula One 3 mm polyp in the ascending colon; performed cold snare with complete en bloc removal and retrieved specimen Hemorrhoids Recommendation Await pathology results Okay to resume all home medications. Repeat colonoscopy 7-10 years pending path Okay to resume Eliquis tomorrow Pre-Procedure Diagnosis / Indication Rectal bleeding Post-Procedure Diagnosis None Staff Staff Role Herminio Rosales MD Performing Provider Simona Munroe CRNA WOOL HAT FORMING MACHINE TENDER Justyn Roach MD Anesthesiologist Karen Reeder RN Gr[employer] 9 Through 12 Teacher Medications See Anesthesia Record. Preprocedure A history and physical has been performed, and patient medication allergies have been reviewed. The patient's tolerance of previous anesthesia has been reviewed. The risks and benefits of the procedure and the sedation options and risks were discussed with the patient. All questions were answered and informed consent obtained. ASA 3 - Patient with severe systemic disease Details of the Procedure The patient underwent monitored anesthesia care, which was administered by an anesthesia professional. The patient's blood pressure, heart rate, level of consciousness, oxygen saturation, respirations, ECG and ETCO2 were monitored throughout the procedure. A digital rectal exam was performed. The scope was introduced through the anus and advanced to the cecum. Retroflexion was performed in the rectum. Bowel prep was adequate. The patient's estimated blood loss was minimal. The procedure was not difficult. The patient tolerated the procedure well. There were no apparent adverse events. Patient provided education and educated on specific discharge instructions. Patient educated on medications given during the procedure and new medications for discharge. Patient verbalizes understanding of discharge education. Patient stable and awaiting transport for discharge. Events Procedure Events Event Event Time ENDO SCOPE IN TIME 10/26/2024 12:06 PM ENDO CECUM REACHED 10/26/2024 12:11 PM ENDO SCOPE OUT TIME 10/26/2024 12:22 PM Specimens ID Type Source Tests Collected by Time 1 : ascending colon polyp - cold snare Tissue Large Intestine, Right/Ascending Colon PATHOLOGY TISSUE REQUEST Herminio Rosales MD 10/26/2024 1215 Anesthesia Event Time In Patient In - Proc. Room 12:00 PM us Herminio Rosales MD ENDOSCOPY PROCEDURE O RDERABLES Final Result * PATHOLOGY TISSUE REQUEST (10/26/2024 12:15 PM EDT) CASE REPORT Surgical Pathology Case: [id number] Authorizing Provider: Herminio Rosales, Collected: 10/26/2024 1215 MD Ordering Location: [facility] Received: 10/26/2024 1505 Pathologist: Karyn Wakefield MD Specimen: Large Intestine, Right/Ascending Colon, ascending colon polyp - cold snare 10/30/2024 8:29 AM EDT [facility] FINAL DIAGNOSIS Clinically ascending colon polyp, biopsy: - Benign colonic mucosa with intramucosal lymphoid aggregates. - No evidence of sessile serrated adenoma/polyp. - Negative for dysplasia or malignancy. 10/30/2024 8:29 AM EDT [facility] at 0829 EDT GROSS DESCRIPTION A. Received in formalin and labeled with the patient's name, medical record number, and ascending colon polyp are 3 fragments of avalos tissue ranging from 0.2 to 0.3 cm in greatest dimension. Entirely submitted in A1. Orlando Estes 10/27/2024 10/30/2024 8:29 AM EDT [facility] MICROSCOPIC DESCRIPTION The microscopic examination may have been rendered in whole, or in part, by analyzing high-resolution digital images (whole slide images) on the [employer] Digital Pathology platform validated at [facility]. 10/30/2024 8:29 AM EDT [facility] EMBEDDED IMAGES 10/30/2024 8:29 AM EDT [facility] Tissue ASCENDING COLON STRUCTURE / Unknown 10/26/2024 12:15 PM EDT 10/26/2024 3:05 PM EDT us Herminio Rosales MD PATHOLOGY ORDERABLES Final Result [facility] [address] [place] [address] documented in this encounter Visit Diagnoses Diagnosis Rectal bleeding Hemorrhage of rectum and anus documented in this encounter Administered Medications Inactive Administered Medications - up to 1 most recent administrations Medication Order MAR Action Action Date Dose Rate Site lactated ringers infusion Intravenous, at 50 mL/hr, PREPROCEDURE CONTINUOUS, Starting on Fifi 10/26/24 at 0645, Until Wed10/27/24 at 0410, To be given in SDS/Pre-op Holding Area, Pre-op (Holding/SDS Meds) New Bag 10/26/2024 8:14 AM EDT 50 mL/hr documented in this encounter Discontinued Medications Medication Sig Discontinue Reason Start Date End Da te amiodarone (PACERONE) 200 mg Oral Tablet Take by mouth. Patient Reported not taking medication 03/15/2024 10/26/2024 documented as of this encounter Orders Medications Ordered That Valeriano ht Not Have Been Administered Count Last Ordered Date First Ordered Date acetaminophen (TYLENOL) tablet 1,000 mg 1 0 10/26/2024 ondansetron (ZOFRAN) injection 4 mg 1 10/26 ondansetron (ZOFRAN-ODT) dis integrating tablet 8 mg 1 10/26/2024 lactated ringers infusion 1 10/25/2024 Discharge Count Last Ordered Date First Orde red Date DISCHARGE PATIENT 1 10/26/2024 documented in this encounter Care Teams Motor Scooter Mechanic Relationship Specialty Start Date End Date Nannette Schmidt DO [address] [place] [id number] PCP - General Family Medicine 05/28/23 documented as of this encounter
--- OUTSIDE RECORDS SUMMARY | 2024-10-26 12:01 | XMS_ITS | Encounter Summary ---
Author Organization [place] [address] Care Team Providers Care Attendant Honor Bar Name Role Phone Roxana Nannette Manuel HOLDER Primary Care Provider Encounter Details Date Type Department Care Team (Late st Contact Info) Description 10/26/2024 12:01 PM EDT Anesthesia Event [facility] [address] [facility] [place] [address] Justyn Roach MD [address] [address] Juanito Jenkins APRN [address] [place] [address] [id number] Anesthesia Record Procedure Summary Procedure Name Responsible Anesthesiologist Anesthesia Start Time Anesthesia Stop Time COLONOSCOPY Justyn Roach MD 10/26/24 1201 10/26 1226 Events Date Time Event Comment 10/26/2024 0816 0836 AN Equip Check 1201 An Start 1201 An Start Data 1201 Start Supplemental O2 Disabl es direct capture of O2 [ANES AGENT O2 [9958194220] and Air flow [ANES AGENT AIR [[id number]] variables into chart. 1201 Immediate Pre Anesthetic Ass es 1204 Anesthesia Ready 1204 Time out 1206 Incision 1226 an stop data 1226 An Stop 1226 Handoff I completed my SBAR handoff to the receiving nurse which has included the followin. Identification of the patient, family, or patient surrogate 2. Identification of the responsible practitioner 3. Pertinent medical history 4. Surgical procedure and reason for procedure 5. Intraoperative anesthetic management 6. All current lines, drains and respiratory support. 7. Outstanding follow up orders (X-rays, consults etc) 8. Expectations/Plans for the early post-procedure period 9. Opportunity for questions and acknowledgement of understanding from the receiving PACU/ICU prepared foods service team member Meds Name Total propofol (DIPRIVAN) injection 100 mg propofol (DIPRIVAN) infusion 10 mg/mL 21 3,197.5 mcg lidocaine injection 1% 50 mg lactated ringers infusion 0 mL * Agents Name O2 N2O Air * Blood No blood administrations on file. Lines, Drains, and Airways Type Details Placement Removal Peripheral IV 10/26/24; 0813; 20; Right; Forearm; 1; 10/26/24; 1252; Discharged; Catheter intact, Dressing applied, No Complications 10/26/24 0813 by Connie Hernandez RN 10/26/24 1252 by Diana Mullen RN documented in this encounter Social History Tobacco Use Types Packs/Day Years [...] on file documented as of this encounter Functional Status * Is the person deaf or does he/she have serious difficulty hearing? Answer Date of Assessment Author No 04/20/2014 4:01 PM Hero eVra RN * Is the person blind or [...] Hero Vera RN documented in this encounter OR Notes * Anesthesia Postprocedure Evaluation - Justyn Roach MD - 10/26/2024 1:15 PM EDT Post-Anesthesia Evaluation Note Patient Name: Daron Rooney Jr. Patient Date: October 26, 2024 Post-Anesthesia Evaluation Post op vitals: stable Difficult airway: no Nausea controlled: yes Level of consciousness: awake Post anesthesia pain: adequate analgesia Airway patency: patent Respiratory status: room air Cardiovascular status: stable Hydration status: euvolemic Temperature: Normothermia Perioperative complications: NONE Vitals Value Taken Time BP 148/84 10/26/24 12:56 Resp 16 10/26/24 12:56 SpO2 96 % 10/26/24 12:56 Temp 36.2 ??C (97.2 ??F) 10/26/24 12:56 Pulse 48 10/26/24 12:56 * Anesthesia Preprocedure Evaluation - Justyn Roach MD - 10/26/2024 8:13 AM EDT Pre-Anesthesia Evaluation Note Patient Name: Daron Rooney Jr. Sex: male Patient : 1960 Age: 64 y.o. Patient Date: October 26, 2024 COLONOSCOPY Anesthesia Evaluation Previous anesthesia. No history of anesthetic complications: Airway Mallampati: II TM distance: >3 FB Neck ROM: full No increased risk of difficult airway Dental - normal exam Pulmonary (+) COPD: History of tobacco use (24 pack year): current Physical exam: Comments: Clear to auscultation (-) no URI cough sputum Cardiovascular Comments: Last evaluation by CTS at 03/2024. 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 Last seen 07/2024 Essential tremor (+) Cerebrovascular disease (Hx of intracranial aneurysm x 2- reports hx of rupture in 1995 and 2004 but no surgery.): cerebral aneurysm GI/Hepatic/Renal Comments: Ulcerative colitis Chronic constipation Rectal bleeding (+)Hiatal hernia GERD/PUD: BPH Chronic kidney disease: III Endo/Other (+): Anemia anticoagulation therapy (Eliquis Last dose wednesday) (-) No diabetes mellitus SUPPORT COORDINATOR Additional Pre-evaluation comments 04/06/24 CBC and BMP reviewed: WBC 15.6, Hgb 12.9, Glucose 120, Cr 1.34, K 3.5 03/08/24 EKG (Care Everywhere): SR 12/30/23 EKG: SB Opioids : Naive Body mass index is 24.51 kg/m??. Anesthesia Plan ASA 3 Last solid intake: The patient has not eaten within the last 8 hours. Last clear liquid intake: The patient has not had clear liquids within the last 2 hours. Last tobacco use: The patient has used tobacco today. Anesthesia Plan: MAC Induction: intravenous Monitors: STD Informed consent Anesthetic plan and risks discussed with: patient. Chart Reviewed and patient examined documented in this encounter Miscellaneous Notes * PAT Pre Evaluation for Anesthesia - Juanito Jenkins APRN - 10/25/2024 11:07 AM EDT Pre-Anesthesia Evaluation Note Patient Name: Daron Rooney Sex: male Patient : 1960 Age: 64 y.o. Patient Date: October 25, 2024 COLONOSCOPY Anesthesia Evaluation Previous anesthesia. Airway Dental Pulmonary (+) COPD: History of tobacco use (24 pack year): current Cardiovascular Comments: Last evaluation by CTS at 03/2024. 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 Last seen 07/2024 Essential tremor (+) Cerebrovascular disease (Hx of intracranial aneurysm x 2- reports hx of rupture in 1995 and 2004 but no surgery.): cerebral aneurysm GI/Hepatic/Renal Comments: Ulcerative colitis Chronic constipation Rectal bleeding (+)Hiatal hernia GERD/PUD: BPH Chronic kidney disease: III Endo/Other (+)Anemia anticoagulation therapy (Eliquis) SUPPORT COORDINATOR Additional Pre-evaluation comments 04/06/24 CBC and BMP reviewed: WBC 15.6, Hgb 12.9, Glucose 120, Cr 1.34, K 3.5 03/08/24 EKG (Care Everywhere): SR 12/30/23 EKG: SB Opioids There is no height or weight on file to calculate BMI. Anesthesia Plan Anesthesia Plan: MAC Chart Reviewed documented in this encounter Plan of Treatment Upcoming Encounters Date Type Department Care Team (Late st Contact Info) Description 01/11/2025 2:35 PM EST Office Visit [facility] Neurology [facility] [address] [place] [address] Clovis Fallon APRN [address] [address] documented as of this encounter Goals Goal Patient Goal Type Associated Problems Recent Progress Patient-Stated? Author Blood Pressure < 140/90 Blood Pressure 148/84(2024 12:56 PM EDT) No Nannette Schmidt, DO Maintain a healthy diet, exercise regularly and maintain an ideal body weight General No Melly Guillen CCMA Stay Tobacco Free Lifestyle No Melly Guillen CCMA documented as of this encounter Visit Diagnoses Not on filedocumented in this encounter Administered Medications Inactive Administered Medications - up to 1 most recent administrations Medication Order MAR Action Action Date Dose Rate Site lidocaine 1% 10 mg/mL (1 %) injection Intravenous, PRN (Anesthesia), Starting on Fifi 10/26/24 at 1204, Until Fifi 10/26/24 at 1226, Anesthesia Intra-op Given 10/26/2024 12:04 PM EDT 50 mg propofol (DIPRIVAN) infusion 10 mg/mL Intravenous, CONTINUOUS PRN, Starting on Fifi 10/26/24 at 1204, Until Fifi 10/26/24 at 1226, Anesthesia Intra-op Rate/Dose Change 10/26/2024 12:20 PM EDT 50 mcg/kg/min 23.91 mL/hr propofoL (DIPRIVAN) injection Intravenous, PRN (Anesthesia), Starting on Fifi 10/26/24 at 1204, Until Fifi 10/26/24 at 1226, Anesthesia Intra-op Given 10/26/2024 12:04 PM EDT 100 mg documented in this encounter Care Teams Attendant Honor Bar Relationship Specialty Start Date End Date Nannette Schmidt DO [place] [id number] PCP - General Family Medicine 05/28/23 documented as of this encounter
--- OUTSIDE RECORDS SUMMARY | 2024-11-02 09:29 | XMS_ITS | Clinical Summary ---
Author Organization [facility] Address [address] [place] [address] Phone Care Team Providers Care Network Services Project Manager Name Role Phone Unavailable Unavailable Conditions or Problems No information available. Medications No information available. Medications Administered No information available. Allergies, Adverse Reactions, Alerts No information available. Results No information available. Plan of Care No information available. Procedures No information available. Vital Signs No information available. Immunizations No information available. Advance Directives No information available.
--- OUTSIDE RECORDS SUMMARY | 2024-11-02 09:30 | XMS_ITS | Encounter Summary ---
Author Organization [place] [address] Care Team Providers Care Event Promotions Coordinator Name Role Phone Roxana Nannette Jackson DO Primary Care Provider [phone] Reason for Visit * Reason Onset Date Comments Medication Management 10/19/2024 colyte Encounter Details Date Type Department Care Team (Late Contact Info) Description 10/19/2024 Telephone [facility] [address] [facility] [address], 3RD [place] [address] Herminio Rosales MD [address] [place] [address] Medication Management (colyte ) Social History Tobacco Use Types Packs/Day Years [...] Filled Start Date End Date polyethylene glycol (GOLYTELY) 236-22.74-6.74 -5.86 gram Oral Recon Soln Take as directed by Doctors Office 4000 mL 10/19/2024 documented in this encounter Miscellaneous Notes * Telephone Encounter - Magdalena Leon RMA - 10/19/2024 2:42 PM EDT Prep sent thanks * Telephone Encounter - Jl Saunders, Clerical Staff - 10/19/2024 2:29 PM EDT Please send colyte to [facility] instructions given in office documented in this encounter Plan of Treatment Upcoming Encounters Date Type Department Care Team (Late st Contact Info) Description 01/11/2025 2:35 PM EST Office Visit [facility] [address] [place] [address] Clovis Fallon, DIRECTOR [employer] [address] [facility] [address] [place] [address] documented as of this encounter Goals Goal Patient Goal Type Associated Problems Recent Progress Patient-Stated? Author Blood Pressure < 140/90 Blood Pressure 148/84(2024 12:56 PM EDT) No Nannette Schmidt DO Maintain a healthy diet, exercise regularly and maintain an ideal body weight General No Melly Guillen CCMA Stay Tobacco Free Lifestyle No Melly Guillen CCMA documented as of this encounter Visit Diagnoses Not on filedocumented in this encounter Care Teams Event Promotions Coordinator Relationship Specialty Start Date End Date Nannette Schmidt DO [address] [place] [address] PCP - General Family Medicine 05/28/23 documented as of this encounter
--- OUTSIDE RECORDS SUMMARY | 2024-11-02 09:30 | XMS_ITS | Encounter Summary ---
Author Organization [place] [address] Care Team Providers Care Any Commodity Buyer Name Role Phone Nannette Schmidt DO Primary Care Provider [phone] Reason for Visit * Reason Comments Medication Refill Encounter Details Date Type Department Care Team (Late Contact Info) Description 10/20/2024 Refill [facility] [address] [place] [id number] Nannette Schmidt DO [address] [place] [id number] Medication Refill Social History Tobacco Use Types Packs/Day Years [...] Assessment Author No 04/20/2014 4:01 PM Hero Vera, JOSÉ LUIS * Is the person blind or does [...] Refills Last Filled Start Date End Date loratadine (CLARITIN) 10 mg Oral TabletIndications:N papito congestion TAKE 1 TABLET BY MOUTH EVERY DAY 30 Tablet 2 10/20/2024 documented in this encounter Plan of Treatment Upcoming Encounters Date Type Department Care Team (Late st Contact Info) Description 01/11/2025 2:35 PM EST Office Visit [facility] Neurology [facility] [address] [place] [place] [address] Clovis Fallon, ASSISTANT REAL ESTATE MANAGER [address] [address] documented as of this encounter [...] as of this encounter Visit Diagnoses Diagnosis Nasal congestion Other diseases of nasal cavity and sinuses documented in this encounter Discontinued Medications Medication Sig Discontinue Reason Start Date End Da te loratadine (CLARITIN) 10 mg Oral TabletIndications:Nasal congestion Take 1 Tablet by mouth daily. 06/29/2024 10/20/2024 documented as of this encounter Care Teams Any Commodity Buyer Relationship Specialty Start Date End Date Nannette Schmidt DO [address] [place] [address] PCP - General Family Medicine 05/28/23 documented as of this encounter
--- OUTSIDE RECORDS SUMMARY | 2024-11-02 09:30 | XMS_ITS | Encounter Summary ---
Author Organization [facility] Address [address] [place] [address] Care Team Providers Care Lime Slaker Name Role Phone RoxanaNannette Primary Care Provider [phone] Torres Sandoval MD Unavailable [phone] Encounter Details Date Type Department Care Team (Late st Contact Info) Description 01/28/2024 Orders Only External Location [address] [place] [address] Misti Garcia, BLOOD TESTER FOWL [address] [facility] [address] [address] Social History Tobacco Use Types Packs/Day Years Used Date Smoking Tobacco: Never Assessed Sex and Gender Information Value Date Recorded Sex Assigned at Not on file Legal Sex Male 6:03 PM EDT Gender Identity Not on file Sexual Orientation Not on file documented as of this encounter Plan of Treatment Not on file documented as of this encounter Procedures Procedure Name Priority Date/Time Associated Diagnosis Comments CT OUTSIDE IMAGES 01/28/2024 8:22 AM EST documented in this encounter Results * CT OUTSIDE IMAGES (01/28/2024 8:22 AM EST) Anatomical Region Laterality Modality Computed Tomogra phy 01/28/2024 8:22 AM EST Misti Garcia APRN IMG CT PROCEDURES Cecilia l Result documented in this encounter Visit Diagnoses Not on filedocumented in this encounter Care Teams Lime Slaker Relationship Specialty Start Date End Date Nannette Schmidt [address] [place] [phone] PCP - General 02/17/24 Torres Sandoval MD [address] [facility] [address] [place] [phone] 02/29/24 documented as of this encounter
--- OUTSIDE RECORDS SUMMARY | 2024-11-02 09:30 | XMS_ITS | Clinical Summary ---
Author Organization [facility] Address [address] [place] [address] Care Team Providers Care Electronics Computer Mechanic Name Role Phone Roxana Nannette Primary Care Provider [phone] Torres Sandoval MD Unavailable [phone] Allergies No known active allergies Medications apixaban (Eliquis) 5 MG tablet Take 1 tablet (5 mg) by mouth 2 (two) times a day. Active famotidine (Pepcid) 40 MG tablet Take 1 tablet (40 mg) by mouth every night. Active Fluticasone Propionate, Inhal, 50 MCG/ACT aerosol powder Inhale 1 (one) time if needed. Active folic acid (Folvite) 1 MG tablet Take 1 tablet (1 mg) by mouth 1 (one) time each day. Active hydrOXYzine pamoate (Vistaril) 25 MG capsule Take 1 capsule (25 mg) by mouth at night if needed. Active loratadine (Claritin Reditabs) 10 MG disintegrating tablet Take 1 tablet (10 mg) by mouth 1 (one) time each day. Active primidone (Mysoline) 50 MG tablet Take 1 tablet (50 mg) by mouth 2 (two) times a day. Active tamsulosin (Flomax) 0.4 MG 24 hr capsule Take 1 capsule (0.4 mg) by mouth every night. Active albuterol 108 (90 Base) MCG/ACT inhaler Inhale 2 puffs if needed for wheezing. Active polyethylene glycol (Miralax) 17 g packet Take 17 g by mouth 1 (one) time each day. Active tiotropium (Spiriva) [address] 1 capsule (18 mcg) into inhaler and inhale 1 (one) time each day. Active calcium carbonate (Maalox) 600 MG chewable tablet Chew 1 tablet (600 mg) 2 (two) times a day. Active metoprolol tartrate (Lopressor) 50 MG tablet Take 0.5 tablets (25 mg) by mouth 2 (two) times a day. 180 tablet 03/15/19 25 Active acetaminophen (Tylenol) 325 MG tablet Take 2 tablets (650 mg) by mouth every 4 (four) hours if needed for pain. Under [place] law, monthly prescriptions (30 days) can be refilled at 25 days and three-month prescriptions (90 days) at 80 days. Please contact the insurance company with questions if refills are denied. 100 tablet 03/15/19 25 Active amiodarone (Pacerone) 200 MG tablet Take 2 tablets (400 mg) by mouth 2 (two) times a day for 3 days, THEN 1 tablet (200 mg) 1 (one) time each day. 90 tablet 03/15/19 25 Active aspirin 81 MG chewable tablet Chew 1 tablet (81 mg) 1 (one) time each day. 90 tablet 03/16/19 25 Active atorvastatin (Lipitor) 80 MG tablet Take 1 tablet (80 mg) by mouth every night. 90 tablet 03/15/19 25 Active docusate sodium 100 MG capsule Take 100 mg by mouth 2 (two) times a day. 20 capsule 03/15/19 25 Active Additional Information Patient not taking.Reported on 04/06/2024 furosemide (Lasix) 40 MG tablet Take 1 tablet (40 mg) by mouth 1 (one) time each day. 14 tablet 03/16/19 25 Active Active Problems Problem Noted Date Diagnosed Date Constipation 03/10/2024 Overview (03/10/2024): Likely chronic in nature with medication effect. - slightly improved, on bowel regimen - if no BM 03/11--will need KUB and Relistor Anemia 03/09/2024 Overview (03/10/2024): Lab Results Component Value Date HGB 10.3 (L) 03/10/2024 Lab Results Component Value Date HCT 30.3 (L) 03/10/2024 -Likely in setting of post-op -stable, CTM Coronary artery disease invo lving [place] coronary artery of [place] heart, unspecified whether angina present 03/07/2024 S/P CABG (coronary artery bypass graft) 03/07/20 Overview (03/08/2024): S/p 4vCABG with Dr. De Los Santos on 03/07/24 Resume asa/statin/BB 03/08 Goal systolic <140 Daily CXR COPD (chronic obstructive pulmonary disease) Overview (03/10/2024): Dulera and Rickieiva, resume home meds at D/C PRN Duonebs Tobacco abuse 02/24/2024 Abnormal nuclear cardiac imaging test 02/24/2024 Overweight (BMI 25.0-29.9) 02/24/2024 CAD (coronary artery disease) 02/23/2024 Overview (03/08/2024): S/p 4vCABG with Filiberto on 03/07/24 - ASA, statin, beta francia started BPH (benign prostatic hyperplasia) 02/23/2024 Overview (03/10/2024): Resume home Flomax, voiding without issue GERD (gastroesophageal reflux disease) Overview (03/10/2024): Continue PPI PAF (paroxysmal atrial fibrillation) 02/23/2024 Overview (03/10/2024): -On Eliquis at home, hold inpatient -Will require therapeutic anticoagulation on discharge -Metop increased to 25 mg BID HLD (hyperlipidemia) 02/23/2024 Overview (03/08/2024): On atorvastatin 80mg HTN (hypertension) 02/23/2024 Overview (03/08/2024): Resume home meds as appropriate Goal systolic <140 On metop 12.5mg Chest pain 12/18/2023 Essential tremor 04/16/2022 Overview (03/07/2024): Resume home meds as appropriate Vitamin D deficiency 04/16/2022 Folic acid deficiency 04/16/2022 Recurrent right inguinal hernia 05/03/2014 Resolved Problems Problem Noted Date Diagnosed Date Resolved Date Post-op pain 03/08/2024 03/15/2024 Overview (03/09/2024): -MMP control Gastric distention 03/08/2024 Overview (03/08/2024): -Seen on KUB -start scheduled simethicone x2 days Electrolyte abnormality 03/08/202410/2024 Overview (03/08/2024): -monitor and replace prn DANIELA (acute kidney injury) 03/08/2024 Overview (03/09/2024): -target RPP > 60 Lab Results Component Value Date CREATININE 1.20 03/09/2024 -down trending, CTM Cardiac volume overload 03/07/202410/2024 Overview (03/09/2024): Diuresis as appropriate Daily CXR Acute respiratory insufficiency 03/07/2024 03/15/2024 Overview (03/09/2024): -Presented to ICU intubated on mechanical ventilation following mvCABG 03/07 -COPD baseline, no home O2 use, no issues with oxygenation/ventilation intra-op -remains on 2L NC -scheduled duonebs Thrombocytopenia 03/07/2024 03/15/2024 Overview (03/10/2024): 1u plt intra op, CTM Lab Results Component Value Date PLT 138 (L) 03/10/2024 Leukocytosis 03/07/2024 03/15/2024 Overview (03/10/2024): Currently afebrile Monitor for signs and symptoms of infection Likely to acutely worsen due to surgical stress and reactivity Trend on AM labs, CTM Check diff today Lab Results Component Value Date WBC 21.14 (H) 03/10/2024 Hyperglycemia 03/07/2024 03/15/2024 Overview (03/07/2024): Required insulin gtt intra-op Trend, start SSI if required A1c 5.4 On mechanically assisted ventilation 03/07/2024 03/09/2024 Overview (03/07/2024): -PEEP tamponade for initial high chest tube output, likely transient but will monitor and hold extubation unless resolved Immunizations Immunization Administration Dates Next Due Influenza, injectable, quadrivalent, preservativ e free 04/01/2022 Pneumococcal 20-sophie Conj Vaccine 04/01/2022 Pneumococcal Polysaccharide PPV23 12/22/2016 Tdap 04/14/2022 Zoster, Recombinant 04/01/2022 Family History Medical History Relation Name Comments Heart attack Brother Anesthesia problems Neg Hx Malig Hyperthermia Neg Hx Relation Name Status Comments Brother Social History Tobacco Use Types Packs/Day Years Used Date Smoking Tobacco: Every Day Cigarettes 0.5 41.7 Started: 1983 Passive Smoke Exposure: Never Smokeless Tobacco: Former Comments:Quit dip Alcohol Use Standard Drinks/Week Comments Not Currently 0 (1 standard drink = 0.6 oz pur e alcohol) Humiliation, Afraid, Rape, and Kick questionnair e Answer Date Recorded Within the last year, have y ou been afraid of your partner or ex-partner? No 03/09/2024 Within the last year, have y ou been humiliated or emotionally abused in other ways by your partner or ex-partner? No Within the last year, have y ou been kicked, hit, slapped, or otherwise physically hurt by your partner or ex-partner? No 03/09/2024 Within the last year, have y ou been raped or forced to have any kind of sexual activity by your partner or ex-partner? No 03/09/2024 Hunger Vital Sign Answer Date Recorded Within the past 12 months, y ou worried that your food would run out before you got the money to buy more. Never true 03/09/19 25 Within the past 12 months, t he food you bought just didn't last and you didn't have money to get more. Never true 03/09/2024 PRAPARE - Transportation Answer Date Re corded In the past 12 months, has l ack of transportation kept you from medical appointments or from getting medications? No 04/2024 In the past 12 months, has l ack of transportation kept you from meetings, work, or from getting things needed for daily living? No 03/09/2024 Housing Stability Vital Sign Answer Napoleon e Recorded In the last 12 months, was t here a time when you were not able to pay the mortgage or rent on time? No 03/09/2024 Number of Times Moved in the Last Year Not on fi le 03/09/2024 At any time in the past 12 m [facility], were you homeless or living in a long-term (including now)? No 03/09/2024 Utilities Answer Date Recorded In the past 12 months has th e electric, gas, oil, or water company threatened to shut off services in your home? No 03/09/2024 Sex and Gender Information Value Date Recorded Sex Assigned at Not on file Legal Sex Male 6:03 PM EDT Gender Identity Not on file Sexual Orientation Not on file Last Filed Vital Signs Vital Sign Reading Time Taken Comments Blood Pressure 120/80 04/06/2024 11:52 AM EST Pulse 55 04/06/2024 11:52 AM EST Temperature 36.6 C (97.8 F) 03/15/2024 11:10 AM EST Respiratory Rate 18 03/15/2024 11:10 AM EST Oxygen Saturation 99% 04/06/2024 11:52 AM EST Inhaled Oxygen Concentration - - Weight 79.4 kg (175 lb 0.7 oz) 04/06/2024 11:52 AM EST Height 180.3 cm (5' 10.98 ) 03/13/2024 11:00 AM EST Body Mass Index 24.42 03/13/2024 11:00 AM EST Plan of Treatment Health Maintenance Due Date Last Done Comments [facility]-Depression Screening 1960 [facility]-HIV Screening 1960 [facility]-Hepatitis C Screening 1960 [facility]-Infant/Child/Adol SDOH Screenings 1960 CT Colonography 06/27/2007 Colonoscopy 06/27/2007 FIT-DNA 06/27/2007 FIT 06/27/2007 FOBT 06/27/2007 Sigmoidoscopy 06/27/2007 [facility]-Colorectal Cancer Screening 06/27/2007 [facility]-Zoster Vaccines (2 of 2) 05/27/2022 04/01/2022 [id number] Vaccine (3 - season) 2023 09/12/2020, 08/22/2020 [facility]-Lung Cancer Screening 06/23/2024 06/24/2023 [facility]- SDOH Screenings 09/06/2024 [facility]-Adult SDOH Screenings 09/06/2024 03/09/2024 [facility]-Influenza Vaccine (#1) 2024 04/01/2022 [facility]-DTaP,Tdap,and Td Vaccine s (2 - Td or Tdap) 04/14/2032 04/14/2022 [facility]-RSV Vaccine: 60+ Years o r (1 - 1-dose 75+ series) 2037 [facility]-Pneumococcal Vaccine: 50 + Years Completed 04/01/2022, 12/22/2016 HPV Vaccines Aged Out No longer eligi ble based on patient's age to complete this topic [facility]-HIB Vaccines Aged Out No longer e ligible based on patient's age to complete this topic [facility]-Hepatitis A Vaccines Aged Out No longer eligible based on patient's age to complete this topic UKY-IPV Vaccines Aged Out No longer e ligible based on patient's age to complete this topic [facility]-Rotavirus Vaccines Aged Out No lo nger eligible based on patient's age to complete this topic Medical Devices Implanted Type Area Vp Analysis Device Identifier Shelf Expiration Date Model / Serial / Lot Mesh Mesh N/A: Abdomen Insurance Y [address] [place] [address] [employer] [facility] MEDICAID Advance Directives * Full Code (Latest Code Status on File) Date Activated Date Inactivated Comments 03/13/2024 12:07 PM 03/15/2024 4:17 PM Question Answer Comments Patient has decision-making capacity? Yes Care Teams Electronics Computer Mechanic Relationship Specialty Start Date End Date Nannette Schmidt [address] [place] [address] PCP - General 02/17/24 Torres Sandoval MD [address] [facility] [address] [place] [address] 02/29/24
--- OUTSIDE RECORDS SUMMARY | 2024-11-02 09:30 | XMS_ITS | Encounter Summary ---
Author Organization [place] Address [place] [address] Care Team Providers Care Administration Specialist Name Role Phone Nannette Schmidt DO Primary Care Provider [phone] Encounter Details Date Type Department Care Team (Late st Contact Info) Description 09/29/2024 Orders Only [facility] [address] [place] [address] Nannette Schmidt DO [address] [place] [phone] Social History Tobacco Use Types Packs/Day Years [...] Hero Vera RN documented in this encounter Plan of Treatment Upcoming Encounters Date Type Department Care Team (Late st Contact Info) Description 01/11/2025 2:35 PM EST Office Visit SEP Neurology [facility] [address] [place] [address] Clovis Fallon, REGIONAL WILDLIFE AGENT [address] [facility] [address] [place] [address] documented as of this encounter [...] on filedocumented in this encounter Care Teams Administration Specialist Relationship Specialty Start Date End Date Nannette Schmidt DO [address] [place] [address] PCP - General Family Medicine 05/28/23 documented as of this encounter
--- OUTSIDE RECORDS SUMMARY | 2024-11-02 09:30 | XMS_ITS | Encounter Summary ---
Author Organization [place] [address] Care Team Providers Care Color Grinder Name Role Phone Nannette Schmidt DO Primary Care Provider [phone] Reason for Visit * Reason Onset Date Comments Medication Refill 09/29/2024 Encounter Details Date Type Department Care Team (Late Contact Info) Description 09/29/[address] [facility] [address] [place] [address] Nannette Schmidt DO [address] [place] [phone] Medication Refill Social History Tobacco Use Types [...] 2:35 PM EST Office Visit SEP Neurology [facility] [address] [place] [phone] Clovis Fallon, COOK TORTILLA [address] [facility] [address] [place] [address] documented as of this encounter [...] on filedocumented in this encounter Care Teams Color Grinder Relationship Specialty Start Date End Date Nannette Schmidt DO [address] [place] [address] PCP - General Family Medicine 05/28/23 documented as of this encounter
--- OUTSIDE RECORDS SUMMARY | 2024-11-02 09:30 | XMS_ITS | Encounter Summary ---
Author Organization [place] [address] Care Team Providers Care Finisher Cold Rolling Name Role Phone Nannette Schmidt DO Primary Care Provider Reason for Visit * Reason Onset Date Comments Medication Management 09/29/2024 hydrOXYzin e (VISTARIL) 25 mg Oral Capsule 30 Capsule 0 09/25/2024 - Sig: TAKE 1 CAPSULE BY MOUTH EVERY DAY AT NIGHT Encounter Details Date Type Department Care Team (Late st Contact Info) Description 09/29/2024 Telephone [facility] [address] [place] [address] Nannette Schmidt, DO [address] [place] [address] Medication Management (hydrOXYzine (VISTARIL) 25 mg Oral Capsule 30 Capsule 0 09/25/2024 - /Sig: TAKE 1 CAPSULE BY MOUTH EVERY DAY AT NIGHT //) Social History Tobacco Use Types Packs/Day Years [...] Hero Vera RN documented in this encounter Miscellaneous Notes * Telephone Encounter - Nannette Schmidt DO - 09/29/2024 5:06 PM EDT Please schedule him with us for his annual so we can discuss all his medications * Telephone Encounter - Meka Edward RMA - 09/29/2024 2:30 PM EDT Pharmacy didn't receive script computer were down * Telephone Encounter - Joy Giles RMA - 09/29/2024 1:34 PM EDT Select the most appropriate reason for this telephone message: Medication Management/Problem Who is calling? Other Niece What medication(s) do you have concerns about: hydrOXYzine (VISTARIL) 25 mg Oral Capsule 30 Capsule 0 09/25/2024 -- Sig: TAKE 1 CAPSULE BY MOUTH EVERY DAY AT NIGHT Prescribing provider: Dr Schmidt What are your concerns/request: Call Pharmacy. They keep saying they did not receive the script Desired outcome: Other call pharmacy Last appointment date: na [facility] Method of Communication: Phone Call Additional Information: Tried calling the pharmacy to see what was wrong. No one answer due to lunch. Pt would like to have some call pharmacy after 2 documented in this encounter Plan of Treatment Upcoming Encounters Date Type Department Care Team (Late st Contact Info) Description 01/11/2025 2:35 PM EST Office Visit SEP Neurology [facility] [address] [place] [phone] Clovis Fallon, REAL ESTATE VALUER [address] [facility] [address] [place] [address] documented as of this encounter [...] on filedocumented in this encounter Care Teams Finisher Cold Rolling Relationship Specialty Start Date End Date Nannette Schmidt DO [address] [place] [address] PCP - General Family Medicine 05/28/23 documented as of this encounter
--- OUTSIDE RECORDS SUMMARY | 2024-11-02 09:30 | XMS_ITS | Encounter Summary ---
Author Organization [place] [address] Care Team Providers Care Medical Billing And Coding Specialist Name Role Phone Nannette Schmidt DO Primary Care Provider [phone] Reason for Visit * Reason Comments Medication Refill Encounter Details Date Type Department Care Team (Late Contact Info) Description 10/18/2024 Refill [facility] [address] [phone] Nannette Schmidt DO [address] [place] [phone] Medication Refill Social History Tobacco Use Types [...] Refills Last Filled Start Date End Date hydrOXYzine (VISTARIL) 25 mg Oral Capsule TAKE 1 CAPSULE BY MOUTH EVERY DAY AT NIGHT 30 Capsule 10/19/2024 documented in this encounter Plan of Treatment Upcoming Encounters Date Type Department Care Team (Late st Contact Info) Description 01/11/2025 2:35 PM EST Office Visit SEP Neurology [facility] [address] [place] [address] Clovis Fallon, PHOTOGRAPHERS' MODEL [address] [address] documented as of this encounter [...] Diagnoses Not on filedocumented in this encounter Discontinued Medications Medication Sig Discontinue Reason Start Date End Da te hydrOXYzine (VISTARIL) 25 mg Oral Capsule TAKE 1 CAPSULE BY MOUTH EVERY DAY AT NIGHT 09/25/2024 10/19/2024 documented as of this encounter Care Teams Medical Billing And Coding Specialist Relationship Specialty Start Date End Date Nannette Schmidt DO [address] [place] [address] PCP - General Family Medicine 05/28/23 documented as of this encounter
--- OUTSIDE RECORDS SUMMARY | 2024-11-02 09:30 | XMS_ITS | Encounter Summary ---
Author Organization [place] [address] Care Team Providers Care Timber Treatment Plant Operator Name Role Phone Nannette Schmidt DO Primary Care Provider [phone] Reason for Visit * Reason Onset Date Comments Medication Refill Central Patient Navigator Outreach 10/23/2024 med refills 30 Encounter Details Date Type Department Care Team (Late st Contact Info) Description 10/23/2024 Refill [facility] [address] [place] [phone] Nannette Schmidt DO [address] [place] [phone] Medication Refill; Central Patient Navigator Outreach (med refills 30) Social History Tobacco Use Types Packs/Day Years [...] Refills Last Filled Start Date End Date folic acid (FOLVITE) 1 mg Oral TabletIndications:F olic acid deficiency TAKE 1 TABLET BY MOUTH EVERY DAY 30 Tablet 10/24/2024 documented in this encounter Miscellaneous Notes * Telephone Encounter - Belkys Elliott - 10/24/2024 2:15 PM EDT Patient Outreach: Medication refill appointment, gene count: Med Refill 30 Primary Care Attempt Count: 1st Care Gaps Addressed radiation control worker: Annual Wellness Visit and Appointment Outcome: Left message to return call at and [employer] Message Sent. Call back number: [phone] * Telephone Encounter - Kacey Leach CPhT - 10/24/2024 1:48 PM EDT Folic Acid - Future Visit: N/A Last Assessed Visit: N/A Follow-Up Date: NANNETTE Appointment protocol failed. One gene supply sent to pharmacy. Routed to Patient Navigators. documented in this encounter Plan of Treatment Upcoming Encounters Date Type Department Care Team (Late st Contact Info) Description 01/11/2025 2:35 PM EST Office Visit SEP Neurology [facility] [address] [place] [address] Clovis Fallon, PHOTO LAB MANAGER [address] [facility] [address] [place] [address] documented as of this encounter [...] as of this encounter Visit Diagnoses Diagnosis Folic acid deficiency Other B-complex deficiencies documented in this encounter Discontinued Medications Medication Sig Discontinue Reason Start Date End Da te folic acid (FOLVITE) 1 mg Oral TabletIndications:Folic acid deficiency TAKE 1 TABLET BY MOUTH EVERY DAY 10/06/2023 10/24/2024 documented as of this encounter Care Teams Timber Treatment Plant Operator Relationship Specialty Start Date End Date Nannette Schmidt DO [address] [place] [address] PCP - General Family Medicine 05/28/23 documented as of this encounter
--- OUTSIDE RECORDS SUMMARY | 2024-11-02 09:30 | XMS_ITS | Encounter Summary ---
Author Organization [place] [address] Care Team Providers Care Compensation Analyst Name Role Phone Nannette Schmidt DO Primary Care Provider [phone] Encounter Details Date Type Department Care Team (Late st Contact Info) Description 10/30/2024 Results Follow-Up [facility] [address] [facility] [address], [address] [place] [address] Herminio Rosales MD [address] [place] [address] PATHOLOGY TISSUE REQUEST Social History Tobacco Use Types Packs/Day Years [...] 2:35 PM EST Office Visit SEP Neurology [facility] [address] [place] [phone] Clovis Fallon, FISH SKINNING MACHINE FEEDER [address] [facility] [address] [place] [address] documented as of this encounter [...] on filedocumented in this encounter Care Teams Compensation Analyst Relationship Specialty Start Date End Date Nannette Schmidt DO [address] [place] [address] PCP - General Family Medicine 05/28/23 documented as of this encounter
--- OUTSIDE RECORDS SUMMARY | 2024-11-02 09:31 | XMS_ITS | Encounter Summary ---
Author Organization [place] [address] Care Team Providers Care Manager Quantitative Name Role Phone Manuel Damian Primary Care Provider [phone] Meka Roblero MD Primary Care Provi Nannette Stephens DO Primary Care Provider [phone] Encounter Details Date Type Department Care Team (Late st Contact Info) Description 06/22/2014 Orders Only SEP Gastro H [address] [facility] [address] [place] [address] [place] [address] [place] [address] Social History Tobacco Use Types Packs/Day Years Used Date Smoking Tobacco: Every Day Cigarettes 1 25 Alcohol Use Standard Drinks/Week Comments No 0 (1 standard drink = 0.6 oz pur e alcohol) Sex and Gender Information Value Date Recorded Sex Assigned at Not on file Legal Sex Male 7:54 PM EDT Gender Identity Not on file Sexual Orientation Not on file documented as of this encounter Functional Status * Is the person deaf or does he/she have serious difficulty hearing? Answer Date of Assessment Author No 04/20/2014 4:01 PM Hero Vera, RN * Is the person blind or [...] of Assessment Author No 04/20/2014 4:01 PM Brenda Vera RN documented as of this encounter [...] 2:35 PM EST Office Visit SEP Neurology [facility] [address] [place] [address] Clovis Fallon, ORTHOPHOTO TECH/DRAFTSMAN [address] [address] documented as of this encounter Procedures Procedure Name Priority Date/Time Associated Diagnosis Comments ED EGD Routine 06/22/2014 9:45 AM EDT documented in this encounter Results * ED EGD (06/22/2014 9:45 AM EDT) 06/22/2014 9:45 AM EDT Impressions [facility] - 06/22/2014 9:24 AM EDT Normal stomach. Normal duodenum. Esophageal hiatal hernia. Plan: Continue current medication for acid suppression 30 minutes before a meal. Colonoscopy today. This section is an excerpt of the full report. us Ramez Barkley MD GI PROCEDURE ORDERABLES Cecilia noland Result [facility] [address] [place] [address] documented in this encounter Visit Diagnoses Not on filedocumented in this encounter Additional Health Concerns Infection Onset Date Last Indicated Resolved Time R/O COVID-19 01/22/2021 01/22/2021 01/22/2021 9:39 AM EST documented as of this encounter Care Teams Manager Quantitative Relationship Specialty Start Date End Date Manuel Damian [address] [place] [employer] [place] [address] PCP - General Family Medicine 12/10/11 03/31/22 Meka Roblero MD [address] [place] [address] PCP - General Family Medicine 04/01/22 05/27/23 N[place] [address] PCP - General Family Medicine 05/28/23 documented as of this encounter
--- OUTSIDE RECORDS SUMMARY | 2024-11-02 09:31 | XMS_ITS | Referral Summary ---
Author Organization [facility] Address [address] [place] [address] Phone Care Team Providers Care Acoustical Engineer Name Role Phone Rayna Cheatham MD Primary Care Provider [phone] Allergies No known active allergies Medications pantoprazole (PROTONIX) 40 MG TBEC Take 40 mg by mouth daily. Active albuterol (PROVENTIL) (2.5 MG/3ML) 0.083% NEBUIndications:Ac [place] Bronchospastic Disease 3 mLs by Nebulization route every 6 (six) hours as needed (Dyspnea). Indications: Acute Bronchospasm 1 vial 1 12/23/19 17 Active sucralfate (CARAFATE) 1 g TABS Take 1 tablet by mouth 4 (four) times daily before meals and nightly. 120 tablet 1 12/23/19 17 Active Immunizations Immunization Administration Dates Next Due Pneumococcal Polysaccharide (PPV23) Pneumovax-23 12/22/2016 Social History Tobacco Use Types Packs/Day Years Used Date Smoking Tobacco: Every Day Cigarettes Alcohol Use Standard Drinks/Week Comments No 0 (1 standard drink = 0.6 oz pur e alcohol) Sex and Gender Information Value Date Recorded Sex Assigned at Not on file Legal Sex Male 6:19 AM EDT Gender Identity Not on file Sexual Orientation Not on file Last Filed Vital Signs Vital Sign Reading Time Taken Comments Blood Pressure 121/74 12/22/2016 9:01 PM EDT Pulse 73 12/22/2016 9:01 PM EDT Temperature 36.2 C (97.2 F) 12/22/2016 9:01 PM EDT Respiratory Rate 18 12/22/2016 9:01 PM EDT Oxygen Saturation 95% 12/22/2016 9:01 PM EDT Inhaled Oxygen Concentration - - Weight 78.7 kg (173 lb 6.4 oz) 12/21/2016 11:52 AM EDT Height 180.3 cm (5' 11 ) 12/21/2016 11:52 AM EDT Body Mass Index 24.18 12/21/2016 11:52 AM EDT Functional Status * Are you deaf or do you have serious difficulty hearing? Answer Date of Assessment Author No 12/21/2016 12:00 PM EDT Caryn Carroll, Registered Nurse * Are you blind or do you have serious difficulty seeing, even when wearing glasses? Answer Date of Assessment Author No 12/21/2016 12:00 PM EDT Caryn Carroll, Registered Nurse * Do you have serious difficulty walking or climbing stairs? (5 years old or older) Answer Date of Assessment Author No 12/21/2016 12:00 PM Caryn Del Rosario, Registered Nurse * Do you have difficulty dressing or bathing? (5 years old or older) Answer Date of Assessment Author No 12/21/2016 12:00 PM EDCaryn Michael, Registered Nurse * Because of a physical, mental, or emotional condition, do you have difficulty doing errands alone such as visiting a doctor???s office or shopping? (15 years old or older) Answer Date of Assessment Author No 12/21/2016 12:00 PM Caryn Del Rosario, Registered Nurse Mental Status * Because of a physical, mental, or emotional condition, do you have serious difficulty concentrating, remembering, or making decisions? (5 years old or older) Answer Entry Date Author No 12/21/2016 12:00 PM Caryn Del Rosario, Registered Nurse Plan of Treatment Not on file Insurance [employer] Care Teams Acoustical Engineer Relationship Specialty Start Date End Date Rayna Cheatham MD PCP - General Endocrinology 12/22/16
--- OUTSIDE RECORDS SUMMARY | 2024-11-02 09:31 | XMS_ITS | Encounter Summary ---
Author Organization [place] [address] Care Team Providers Care Local Company Hazmat Driver Name Role Phone Nannette Schmidt DO Primary Care Provider [phone] Reason for Visit * Reason Comments Medication Refill Encounter Details Date Type Department Care Team (Late Contact Info) Description 09/24/2024 Refill [facility] [address] [place] [id number] Nannette Schmidt DO [address] [place] [id number] Medication Refill Social History Tobacco Use Types [...] MOUTH EVERY DAY AT NIGHT 30 Capsule 09/25/2024 documented in this encounter Plan of Treatment Upcoming Encounters Date Type Department Care Team (Late st Contact Info) Description 01/11/2025 2:35 PM EST Office Visit SEP Neurology [facility] [address] [place] [address] Clovis Fallon, PHOTO COLORER [address] [address] documented as of this encounter [...] Capsule TAKE 1 CAPSULE BY MOUTH EVERY NIGHT 08/28/2024 09/25/2024 documented as of this encounter Care Teams Local Company Hazmat Driver Relationship Specialty Start Date End Date Nannette Schmidt DO [address] [place] [address] PCP - General Family Medicine 05/28/23 documented as of this encounter
--- OUTSIDE RECORDS SUMMARY | 2024-11-02 09:31 | XMS_ITS | Clinical Summary ---
Author Organization [facility] Address [address] [facility], [address] [place] [address] Care Team Providers Care Chain Saw Operator Name Role Phone Brent Cheatham MD Primary Care Provider [phone] Allergies No known active allergies Medications pantoprazole (PROTONIX) 20 MG tablet Take 20 mg by mouth daily. Active albuterol (VENTOLIN HFA) 108 (90 BASE) MCG/ACT inhaler Inhale 2 puffs into the lungs every 6 hours as needed for Wheezing. Active dexlansoprazole (DEXILANT) 60 MG CPDR capsule Take 60 mg by mouth nightly. Active Active Problems Problem Noted Date Diagnosed Date Nontraumatic rupture of posterior tibial tendon, right 03/25/2017 Recurrent right inguinal hernia 05/03/2014 Social History Tobacco Use Types Packs/Day Years Used Date Smoking Tobacco: Every Day Cigarettes 0.5 35 Smokeless Tobacco: Former Tobacco Cessation:Ready to Q uit: No; Counseling Given: No Alcohol Use Standard Drinks/Week Comments No 0 (1 standard drink = 0.6 oz pur e alcohol) Sex and Gender Information Value Date Recorded Sex Assigned at Not on file Legal Sex Male 4:34 PM EST Gender Identity Not on file Sexual Orientation Not on file Last Filed Vital Signs Vital Sign Reading Time Taken Comments Blood Pressure 137/85 03/25/2017 12:07 PM EST Pulse 70 03/25/2017 12:07 PM EST Temperature 36.7 C (98 F) 03/25/2017 12:07 PM EST Respiratory Rate 16 03/25/2017 12:07 PM EST Oxygen Saturation 97% 03/25/2017 12:07 PM EST Inhaled Oxygen Concentration - - Weight 77.1 kg (170 lb) 03/25/2017 7:34 AM EST Height 180.3 cm (5' 11 ) 03/25/2017 7:34 AM EST Body Mass Index 23.71 03/25/2017 7:34 AM EST Plan of Treatment Not on file Insurance [employer] Care Teams Chain Saw Operator Relationship Specialty Start Date End Date Brent Cheatham MD [facility] [place] [address] PCP - General 05/07/14
--- OUTSIDE RECORDS SUMMARY | 2024-11-02 09:31 | XMS_ITS | Encounter Summary ---
Author Organization [facility] Address [address] [place] [address] [place] [address] Phone Care Team Providers Care Head Of Operation And Logistics Name Role Phone Rayna Cheatham MD Primary Care Provider [phone] Encounter Details Date Type Department Care Team (Late st Contact Info) Description 12/26/2016 Discharge Call Center Patient Call Center [address] [place] [phone] Social History Tobacco Use Types Packs/Day Years [...] as of this encounter Functional Status * Are you deaf or do you have serious difficulty hearing? Answer Date of Assessment Author No 12/21/2016 12:00 PM Caryn Del Rosario Registered Nurse * Are you blind or do you have serious difficulty seeing, even when wearing glasses? Answer Date of Assessment Author No 12/21/2016 12:00 PM Caryn Del Rosario, Registered Nurse * Do you have serious difficulty walking or climbing stairs? (5 years old or older) Answer Date of Assessment Author No 12/21/2016 12:00 PM Caryn Del Rosario, Regulo Nurse * Do you have difficulty dressing or bathing? (5 years old or older) Answer Date of Assessment Author No 12/21/2016 12:00 PM Caryn Del Rosario, Registered Nurse * Because of a physical, mental, or emotional condition, do you have difficulty doing errands alone such as visiting a doctor???s office or shopping? (15 years old or older) Answer Date of Assessment Author No 12/21/2016 12:00 PM Caryn Del Rosario, Registered Nurse documented as of this encounter Mental Status * Because of a physical, mental, or emotional condition, do you have serious difficulty concentrating, remembering, or making decisions? (5 years old or older) Answer Entry Date Author No 12/21/2016 12:00 PM Caryn Del Rosario, Registered Nurse documented in this encounter Plan of Treatment Not on file documented as of this encounter Visit Diagnoses Not on filedocumented in this encounter Care Teams Head Of Operation And Logistics Relationship Specialty Start Date End Date Rayna Cheatham MD PCP - General Endocrinology 12/22/16 documented as of this encounter
--- OUTSIDE RECORDS SUMMARY | 2024-11-02 09:31 | XMS_ITS | Encounter Summary ---
Author Organization [place] [address] Care Team Providers Care Slip Operator Name Role Phone Manuel Damian Primary Care Provider [phone] Meka Roblero MD Primary Care Provi Nannette Stephens DO Primary Care Provider [phone] Encounter Details Date Type Department Care Team (Late st Contact Info) Description 06/22/2014 Orders Only SEP Gastro H [address] [facility] [address] [place] [address] [place] [address] [place] [address] Social History Tobacco Use Types [...] EST Office Visit SEP Neurology [facility] [address] [place] [address] Clovis Fallon, DIRECTOR SYSTEMS [address] [address] documented as of this encounter Procedures Procedure Name Priority Date/Time Associated Diagnosis Comments [facility] COLONOSCOPY Routine 06/22/2014 9:30 AM EDT documented in this encounter Results * [facility] COLONOSCOPY (06/22/2014 9:30 AM EDT) 06/22/2014 9:30 AM EDT Impressions [facility] - 06/22/2014 9:38 AM EDT Internal hemorrhoids. Normal mucosa in the whole colon. Plan: Screening Colonoscopy in 10 years. This section is an excerpt of the full report. us Ramez Barkley MD GI PROCEDURE ORDERABLES Cecilia ludin Result [facility] [address] [place] [address] documented in this encounter Visit Diagnoses Not on filedocumented in this encounter Additional Health Concerns Infection Onset Date Last Indicated Resolved Time R/O COVID-19 01/22/2021 01/22/2021 01/22/2021 9:39 AM EST documented as of this encounter Care Teams Slip Operator Relationship Specialty Start Date End Date Nati Manuel Haroldo [address] [place] [address] PCP - General Family Medicine 12/10/11 03/31/22 Meka Roblero MD [address] [place] [address] PCP - General Family Medicine 04/01/22 05/27/23 [place] [address] PCP - General Family Medicine 05/28/23 documented as of this encounter
--- OUTSIDE RECORDS SUMMARY | 2024-11-02 09:31 | XMS_ITS | Clinical Summary ---
Author Organization [facility] Address [address] [place] [address] Phone Care Team Providers Care Refrigeration Supervisor Name Role Phone Rayna Cheatham MD Primary Care Provider [phone] Allergies No known active allergies Medications pantoprazole (PROTONIX) 40 MG TBEC Take 40 mg by mouth daily. Active albuterol (PROVENTIL) (2.5 MG/3ML) 0.083% NEBUIndications:Ac [place] Bronchospastic Disease 3 mLs by Nebulization route [...] Mass Index 24.18 12/21/2016 11:52 AM EDT Plan of Treatment Health Maintenance Due Date Last Done Comments Hepatitis C Screening 1962 DTap,Tdap,and Td (1 - Tdap) 1973 Colonoscopy 06/27/2007 PSA YEARLY 2012 Shingrix (#1) 2012 Pneumococcal 50+ (2 of 2 - PCV) 12/22/2017 7 Influenza Vaccine (#1) 2024 RSV Vaccine (60+ or ) (1 - 1-dose 75+ series) 2037 Pneumococcal 0-49 Discontinued 12/22/2016 HPV Aged Out No longer eligi ble based on patient's age to complete this topic Meningococcal conjugate naida nt 4 (MCV4) Aged Out No longer eligible b ased on patient's age to complete this topic RSV Immunization (<20 months) Aged Out No longer eligible based on patient's age to complete this topic Insurance [facility] Care Teams Refrigeration Supervisor Relationship Specialty Start Date End Date Rayna Cheatham MD PCP - General Endocrinology 12/22/16
--- OUTSIDE RECORDS SUMMARY | 2024-11-02 09:31 | XMS_ITS | Clinical Summary ---
Author Organization [facility] Address [facility] [place] [address] Phone Care Team Providers Care Manager Appointment Name Role Phone Nannette Schmidt DO Primary Care Provider [phone] Allergies No known active allergies Medications Calcium Carbonate-Vitami n D3 600 mg-5 mcg (200 unit) Oral TabletIndication s:Vitamin D deficiency TAKE 1 TABLET BY MOUTH TWICE A DAY 60 Tablet 09/20/19 24 Active apixaban (ELIQUIS) 5 mg Oral Tablet 5 mg. 12/18/19 24 Active metoprolol (LOPRESSOR) 50 mg Oral TabletIndication s:Coronary artery disease involving [place] coronary artery of [place] heart without angina pectoris,Paroxys mal atrial fibrillation (HCC),Primary hypertension Take 25 mg by mouth. 03/15/19 25 Active losartan (COZAAR) 25 mg Oral TabletIndication s:Primary hypertension 06/27/19 25 Active aspirin 81 mg Oral Tablet, ChewableIndicati ons:Coronary artery disease involving [place] coronary artery of [place] heart without angina pectoris,Paroxys mal atrial fibrillation (HCC) Take 1 Tablet by mouth daily for 360 days. 90 Tablet 3 06/30/19 25 026 Active atorvastatin (LIPITOR) 80 mg Oral TabletIndication s:Coronary artery disease involving [place] coronary artery of [place] heart without angina pectoris Take 1 Tablet by mouth nightly for 360 days. 90 Tablet 3 06/30/19 25 026 Active fluticasone propionate (FLONASE) 50 mcg/actuation Nasl [place], SuspensionIndica tions:Nasal congestion 2 Sprays by Nasal route daily. 16 mL 2 06/30/19 25 Active primidone (MYSOLINE) 50 mg Oral TabletIndication s:Essential tremor Take 1 Tablet by mouth 2 times daily. (Morning and afternoon) 60 Tablet 5 08/05/19 25 Active hydrOXYzine (VISTARIL) 25 mg Oral Capsule TAKE 1 CAPSULE BY MOUTH EVERY DAY AT NIGHT 30 Capsule 10/20/19 25 Active polyethylene glycol (GLYCOLAX) 17 gram/dose Oral PowderIndication s:Constipation, chronic 17-34gm po daily. Titrate to soft bowel movement daily, as directed. 510 g 3 10/20/19 25 Active polyethylene glycol (GOLYTELY) 236-22.74-6.74 -5.86 gram Oral Recon Soln Take as directed by Doctors Office 4000 mL 10/20/19 25 Active loratadine (CLARITIN) 10 mg Oral TabletIndication s:Nasal congestion TAKE 1 TABLET BY MOUTH EVERY DAY 30 Tablet 2 10/21/19 25 Active folic acid (FOLVITE) 1 mg Oral TabletIndication s:Folic acid deficiency TAKE 1 TABLET BY MOUTH EVERY DAY 30 Tablet 10/25/19 25 Active folic acid (FOLVITE) 1 mg Oral TabletIndication s:Folic acid deficiency TAKE 1 TABLET BY MOUTH EVERY DAY 90 Tablet 3 10/06/19 24 025 Discontinued amiodarone (PACERONE) 200 mg Oral Tablet Take by mouth. 03/15/19 25 025 Discontinued(Kvng pace Reported not taking medication) loratadine (CLARITIN) 10 mg Oral TabletIndication s:Nasal congestion Take 1 Tablet by mouth daily. 30 Tablet 2 06/30/19 25 025 Discontinued hydrOXYzine (VISTARIL) 25 mg Oral Capsule TAKE 1 CAPSULE BY MOUTH EVERY DAY AT NIGHT 30 Capsule 09/26/19 25 025 Discontinued polyethylene glycol (GOLYTELY) 236-22.74-6.74 -5.86 gram Oral Recon SolnIndications: bowel evacuation Take 4,000 mL by mouth once for 1 dose. Indications : emptying of the bowel 4000 mL 10/20/19 25 025 Active Problems Problem Noted Date Diagnosed Date Coronary artery disease invo lving [place] coronary artery of [place] heart without angina pectoris 02/09/2024 Overview (02/09/2024): - Angiogram done at [facility], attempted angioplasty of chronically occluded right coronary artery which was unsuccessful at revascularizing. Patient was referred to [facility] for evaluation for bypass surgery and concomitant surgical Maze procedure for paroxysmal A-fib Assessment & Plan (06/29/2024 4:47 PM EDT): Cardiac surgery in February at [facility] Recommended that patient follow-up with cardiology. Cardiology has been managing his medications since this procedure. Orders: aspirin 81 mg Oral Tablet, Chewable; Take 1 Tablet by mouth daily for 360 days. atorvastatin (LIPITOR) 80 mg Oral Tablet; Take 1 Tablet by mouth nightly for 360 days. Paroxysmal atrial fibrillation 01/12/2024 Overview (02/09/2024): -Evaluated by cardiology [facility] -Bradycardia with BB -Angiogram done at [facility], attempted angioplasty of chronically occluded right coronary artery which was unsuccessful at revascularizing. Patient was referred to [facility] for evaluation for bypass surgery and concomitant surgical Maze procedure for paroxysmal A-fib Assessment & Plan (06/29/2024 4:47 PM EDT): Continue beta-francia. Did recommend lowest dose possible given his bradycardia. Recommended he follow-up with cardiology Orders: aspirin 81 mg Oral Tablet, Chewable; Take 1 Tablet by mouth daily for 360 days. Primary hypertension 01/12/2024 Assessment & Plan (06/29/2024 4:47 PM EDT): Pressure well-controlled Stage 3a chronic kidney disease 10/07/2023 COPD, mild 07/30/2023 Assessment & Plan (07/30/2023 4:40 PM EDT): Patient reports history of COPD No available pulmonary function testing noted in chart or imaging Low-dose CT scan negative for malignancy continue yearly follow-up Reports persistent shortness of breath and frequently using albuterol inhaler at this time Will add Spiriva Ulcerative colitis 06/13/2023 Essential tremor 04/16/2022 Assessment & Plan (06/29/2024 4:47 PM EDT): Patient on Eliquis. This does interact with his primidone medication and decrease the effectiveness. It also decreases the effectiveness of his amiodarone. Will likely need to come off the medication. Will reach out to Dr. Gastelum regarding this. Dr. Gastelum did make comment about this in the note we will discuss alternatives. Assessment & Plan (07/30/2023 4:36 PM EDT): Continue propranolol Reports that the tremor seems to be worsened at this time. Unable to titrate up on the propranolol given current heart rate. Will add primidone Assessment & Plan (04/16/2022 9:54 PM EST): Likely essential tremor based on characteristics. Responded well to propranolol 10mg bid. 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 Vitamin D deficiency 04/16/2022 Folic acid deficiency 04/16/2022 Personal history of nicotine dependence 04/16/19 23 Leukocytosis Assessment & Plan (07/30/2023 4:38 PM EDT): Per chart review this has been present for a while now Will order further studies for further evaluation no clear etiology at this time Resolved Problems Problem Noted Date Diagnosed Date Resolved Date Elevated hematocrit 04/16/2022 07/30/19 24 Advanced care planning/counseling discussion 3 07/29/2023 Overview (04/01/2022): Full code but doesn't want prolonged ventilation. Would not want a permanent feeding tube if unable to eat and not in his right mind or able to do his normal life but okay with temporary feeding tube. Would want hospice/palliative care involved but not [facility] [place] due to past experience. Would not want aggressive treatment of infections at end of life. Would be okay with dialysis as long as not end of life or not going to be in his right mind. 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 Would want sister Shara Howell to make decisions for him if he couldn't. Recurrent right inguinal hernia 05/03/2014 07/30/2023 Acute stomach ulcer 04/19/2014 06/13/19 Gastritis and duodenitis 04/19/201409/2023 Abnormal finding on GI tract imaging 04/19/2014 06/13/2023 Abdominal pain, other specified site 04/19/2014 06/13/2023 Right groin pain 12/25/2013 06/13/2023 Abdominal pain 06/13/2023 Duodenitis 06/13/2023 Nausea & vomiting 06/13/2023 Diarrhea 06/13/2023 Hypokalemia 06/13/2023 Ileus 06/13/2023 Encounters Date Type Department Care Team Description 10/30/2024 Results Follow-Up [facility] [address] [facility] [address], [address] [place] [id number] Herminio Rosales MD PATHOLOGY TISSUE REQUEST 10/26/2024 12:01 PM EDT Anesthesia Event [facility] [address] [place] [address] Justyn Roach MD Trog, Lynnsey, BELLE 10/26/2024 7:42 AM EDT - 10/26/2024 11:59 PM EDT Hospital Encounter [facility] [address] [place] [address] Herminio Rosales MD Oliver, Richard G, MD Kline, Michelle R, NICKING MACHINE OPERATOR Rectal bleeding Discharge Disposition: Home or Self Care 10/23/2024 Refill [facility] [place] [address] Nannette Schmidt, DO Medication Refill; Central Patient Navigator Outreach (med refills 30) 10/20/2024 Refill [facility] [place] [phone] Nannette Schmidt, DO Medication Refill 10/19/2024 2:30 PM EDT Office Visit [facility] [address] [facility] [address], 3RD [place] [id number] Herminio Rosales MD Constipation, chronic (Primary Dx); Rectal bleeding 10/19/2024 Telephone [facility] [address], [address] [place] [address] Herminio Rosales MD Medication Management (colyte ) 10/18/2024 Refill [facility] [address] [place] [address] Nannette Schmidt, DO Medication Refill 09/29/2024 Orders Only [address] [place] [address] Nannette Schmidt, DO 09/29/2024 Telephone [facility] [address] [place] [address] Nannette Schmidt, DO Medication Management (hydrOXYzine (VISTARIL) 25 mg Oral Capsule 30 Capsule 0 09/25/2024 - /Sig: TAKE 1 CAPSULE BY MOUTH EVERY DAY AT NIGHT //) 09/29/2024 Refill [facility] [address] [place] [address] Nannette Schmidt, DO Medication Refill 09/24/2024 Refill [facility] [address] [place] [address] Nannette Schmidt, DO Medication Refill 08/28/[address] [place] [address] Nannette Schmidt, DO Medication Refill 08/23/2024 Telephone [facility] [place] [address] [place] [address] Clovis Fallon APRN Follow Up (January 2025) 08/04/2024 8:25 AM EDT Office Visit [facility] Neurology [facility] [address] [place] [address] Clovis Fallon APRN Essential tremor (Primary Dx); History of intracranial aneurysm; Vitamin D deficiency; Folate deficiency; Tobacco abuse from Last 3 Months Immunizations Immunization Administration Dates Next Due Influenza Patient Reported 03/08/2014 Influenza Vaccine Quadrivalent PF 04/01/2022 Influenza Vaccine, Unspecified Formulation 04/01 Pneumococcal Conjugate Vaccine 20 Valent 023 Pneumococcal Polysaccharide 23 Valent 12/22/2016 ,04/19/2014 RSV Bilvalent PF (Abrysvo) 10/18/2024 Tdap 04/14/2022 Zoster Recombinant 10/18/2024,04/01/2022 Surgical History Surgery Date Site/Laterality Comments APPENDECTOMY age 23 HERNIA REPAIR x's 7 - inguinal - last 2014. KNEE ARTHROSCOPY 12/21/2011 Right RIGHT KNEE ARTHROSCOPY PARTIAL MEDIAL MENISCECTOMY CHONDROPLASTY; Surgeon: Jr Del Castillo MD; Location: [facility] MAIN OR; Service: Orthopedics UPPER GASTROINTESTINAL ENDOSCOPY 04/19/2014 N/A ESOPHAGOGASTRODUODENOSCO PY with biopsy; Surgeon: Ramez Barkley MD; Location: [facility] ENDOSCOPY; Service: Endoscopy FOOT SURGERY 03/08/2017 - 04/07/2017 bone spur or extra bone on medial foot per pt CARDIAC SURGERY 4 bypass Medical History Medical History Date Comments Prostate disorder pt states diag nosed with prostate enlargement PUD (peptic ulcer disease) 04/08/2014 Inguinal hernia recurrent bilateral GERD (gastroesophageal reflu x disease) Gastritis and duodenitis 04/19/2014 Duodenitis Acute stomach ulcer 04/19/2014 Ileus (HCC) Recurrent right inguinal hernia 05/03/2014 Elevated hematocrit 04/16/2022 Family History Medical History Relation Name Comments No Known Problems Brother Atrial fibrillation Father UNKNOWN gi issue Father UNKNOWN lost 7 inches o f intestine at age 7 Breast Cancer Mother COPD Mother Cardiomyopathy Mother Diabetes Mother Other Mother lung surgery influenza Mother morphine allegry - caused Mother No Known Problems Sister 1 Shara Howell No Known Problems Sister 2 half -sister Colon Cancer Neg Hx Esophageal Cancer Neg Hx Liver Cancer Neg Hx Liver Disease Neg Hx Rectal Cancer Neg Hx Relation Name Status Comments Brother Father UNKNOWN Other Maternal Grandfather unknown Maternal Grandmother unknown Mother (Age 74) Sister 1 Shara Howell Sister 2 half -sister Alive Social History Tobacco Use Types Packs/Day Years Used Date Smoking Tobacco: Every Day Cigarettes 0.5 48 Smokeless Tobacco: Never Tobacco Cessation:Ready to Q uit: Not Asked; Counseling Given: Not Answered Alcohol Use Standard Drinks/Week Comments No 0 (1 standard drink = 0.6 oz pur e alcohol) PHQ-2 Answer Date Recorded PHQ-2 Total Score 0 06/02/2023 Sexually Active Control Partners Comments Not Currently Sex and Gender Information Value Date Recorded Sex Assigned at Not on file Legal Sex Male 7:54 PM EDT Gender Identity Not on file Sexual Orientation Not on file Obstetrics History Last Filed Vital Signs Vital Sign Reading [...] Mass Index 24.51 10/26/2024 8:04 AM EDT Plan of Treatment Upcoming Encounters Date Type Department Care Team (Late st Contact Info) Description 01/11/2025 2:35 PM EST Office Visit [facility] [address] [place] [address] Clovis Fallon, BATCH MIXER OPERATOR [address] [address] Health Maintenance Due Date Last Done Comments Cologuard 06/27/2007 FIT 06/27/2007 Sigmoidoscopy 06/27/2007 Virtual Colonography 06/27/2007 COVID-19 Vaccine (2023- 5 season) 2023 09/12/2020, 08/22/2020 Annual Wellness Exam 06/01/2024 06/02/2023 Low Dose Lung Cancer Screening 06/23/2024 0 06/24/2023, 05/25/2022 Influenza Vaccine (#1) 2024 , 04/01/2022, 03/08/2014 DTaP/TDaP/Td (2 - Td or Tdap) 04/14/2032 04/14/2022 Colon Cancer Screening 10/26/2034 Colonoscopy 10/26/2034 10/26/2024, 06/22/2014 Hepatitis C Screening Completed 04/01/2022 Pneumococcal Vaccine 50+ Completed 023, 12/22/2016, 04/19/2014 RSV or 60+ Completed 10/18/2024 Zoster Completed 10/18/2024, 04/01/2022 Hepatitis B Vaccine Aged Out No longe r eligible based on patient's age to complete this topic Meningococcal B Vaccine Aged Out No l onger eligible based on patient's age to complete this topic Goals Goal Patient Goal Type Associated Problems Recent Progress Patient-Stated? Author Blood Pressure < 140/90 Blood Pressure 148/84(2024 12:56 PM EDT) No Nannette Schmidt, DO Maintain a healthy diet, exercise regularly and maintain an ideal body weight General No Melly Guillen CCMA Stay Tobacco Free Lifestyle No Melly Guillen CCMA Procedures Procedure Name Priority Date/Time Associated Diagnosis Comments COLONOSCOPY Routine 10/26/2024 12:24 PM EDT Rectal bleeding PATHOLOGY TISSUE REQUEST Routine 10/26/2024 12:15 PM EDT Rectal bleeding CT LUNG CANCER SCREENING LOW DOSE Routine 06/24/2023 1:59 PM EDT Personal history of nicotine dependence ACUTE HEPATITIS PANEL Routine 04/01/2022 10:56 AM EST Tattoos from Last 3 Months or Most Recently Relevant to Health Maintenance Results * COLONOSCOPY (10/26/2024 12:24 PM EDT) [...] Rosales MD Performing Provider Simona Munroe CRNA NICKING MACHINE OPERATOR Justyn Roach MD Anesthesiologist Karen Reeder, JOSÉ LUIS Sales Clerk Food Medications See Anesthesia Record. Preprocedure A history [...] PATHOLOGY TISSUE REQUEST Herminio Rosales MD 10/26/2024 1212 Anesthesia Event Time In Patient In - Proc. Room 12:00 PM Herminio Rosales MD ENDOSCOPY PROCEDURE O RDERABLES Final Result * PATHOLOGY TISSUE REQUEST (10/26/2024 12:15 PM EDT) CASE REPORT Surgical Pathology Case: [id number] Authorizing Provider: Herminio Rosalse, Collected: 10/26/2024 1215 Ordering Location: [facility] END[facility]COPY Received: 10/26/2024 1505 Pathologist: Karyn Wakefield MD Specimen: Large Intestine, Right/Ascending Colon, ascending colon polyp - cold snare 10/30/2024 8:29 AM EDT [facility] FINAL DIAGNOSIS Clinically ascending colon polyp, biopsy: - Benign colonic mucosa with intramucosal lymphoid aggregates. - No evidence of sessile serrated adenoma/polyp. - Negative for dysplasia or malignancy. 10/30/2024 8:29 AM EDT [facility] at 0829 EDT GROSS DESCRIPTION A. Received in formalin and labeled with the patient's name, medical record number, and ascending colon polyp are 3 fragments of avalos tissue ranging from 0.2 to 0.3 cm in greatest dimension. Entirely submitted in A1. Orlando Belcherreji 10/27/2024 10/30/2024 8:29 AM EDT [facility] MICROSCOPIC DESCRIPTION The microscopic examination may have been rendered in whole, or in part, by analyzing high-resolution digital images (whole slide images) on the [employer] Digital Pathology platform validated at [facility]. 10/30/2024 8:29 AM EDT [facility] EMBEDDED IMAGES 10/30/2024 8:29 AM EDT [facility] Tissue ASCENDING COLON STRUCTURE / Unknown 10/26/2024 12:15 PM EDT 10/26/2024 3:05 PM EDT us Herminio Rosales MD PATHOLOGY ORDERABLES Final Result Performing Organization Address City/State/[facility] [address] * CT LUNG CANCER SCREENING LOW DOSE (06/24/2023 1:59 PM EDT) Anatomical Region Laterality Modality Lung Computed Tomogra phy 06/24/2023 1:59 PM EDT Impressions 06/24/2023 2:37 PM EDT Unremarkable low-dose screening chest CT. RECOMMENDATION: Low Dose CT - 1 Yr A summary letter communicating these results will be mailed to the patient's address of record. - Note: Radiology results need to be interpreted within a comprehensive clinical context. If you have questions about the radiology report, please contact the office of the ordering clinician. [email or web address] Narrative 06/24/2023 2:[address] LUNG CANCER SCREENING LOW DOSE 06/24/2023 1:59 PM CLINICAL HISTORY: Asymptomatic patient meeting NCCN high risk criteria for lung screening. Z87.891-Personal history of nicotine [id number]. COMPARISON: 05/25/2022 PROCEDURE COMMENTS: Noncontrast, low-dose, multidetector CT chest per department protocol. Interactive 3-D postprocessing done by the reviewing physician on a [employer] workstation, using Maximum intensity projections (MIPS) and [employer] LUNG CAD for improved lesion detection. Raymond images archived to PACS. Dose 1 : CT DLP Total : 53.24 mGycm DLP Spiral Max : 49.78 mGycm Maximum CTDI Vol : 1.35 mGy FINDINGS: No suspicious pulmonary nodule. 3 mm subpleural nodule anterolateral right upper lobe (axial 114) is stable. No new or enlarging nodules. Evidence of old granulomatous disease. No acute inflammatory process. Heart and mediastinum unremarkable. Coronary artery calcification: Moderate. FOLLOW-UP CODE: Lung-RADS Category 2: Benign Appearance or Behavior. Nodules with a very low likelihood of becoming active cancer due to size or lack of growth. Lung-RADS Modifier N/A: No Modifier Needed Procedure Note Herminio Son MD - 06/24/2023 CT LUNG CANCER SCREENING LOW DOSE 06/24/2023 1:59 PM CLINICAL HISTORY: Asymptomatic patient meeting NCCN high risk criteria forlung screening. Z87.891-Personal history of nicotine [id number]. COMPARISON: 05/25/2022 PROCEDURE COMMENTS: Noncontrast, low-dose, multidetector CT chest perdepartment protocol. Interactive 3-D postprocessing done by the reviewing physicianon a [employer] workstation, using Maximum intensity projections (MIPS) and SYNGOLUNG CAD for improved lesion detection. Raymond images archived to PACS. Dose 1 : CT DLP Total : 53.24 mGycm DLP Spiral Max : 49.78 mGycm Maximum CTDI Vol : 1.35 mGy FINDINGS: No suspicious pulmonary nodule. 3 mm subpleural noduleanterolateral right upper lobe (axial 114) is stable. No new or enlarging nodules.Evidence of old granulomatous disease. No acute inflammatory process. Heart andmediastinum unremarkable. Coronary artery calcification: Moderate. FOLLOW-UP CODE: Lung-RADS Category 2: Benign Appearance or Behavior.Nodules with a very low likelihood of becoming active cancer due to size or lackof growth. Lung-RADS Modifier N/A: No Modifier Needed IMPRESSION: Unremarkable low-dose screening chest CT. RECOMMENDATION: Low Dose CT - 1 Yr A summary letter communicating these results will be mailed to thepatient's address of record. - Note: Radiology results need to be interpreted within a comprehensiveclinical context. If you have questions about the radiology report, please contactthe office of the ordering clinician. [email or web address] Meka Sanchez MD IMG CT ORDERABLES F inal Result * ACUTE HEPATITIS PANEL (04/01/2022 10:56 AM EST) Hep Bs Ag Non-Reacti ve Non-Reacti ve 04/01/2022 4:34 PM EST [facility] Hep B Core IgM Non-Reacti ve Non-Reacti ve 04/01/2022 4:34 PM EST [facility] Hep A IgM Non-Reacti ve Non-Reacti ve 04/01/2022 4:34 PM EST [facility] Hep C Ab Non-Reacti ve Non-Reacti ve 04/01/2022 4:34 PM EST [facility] Blood VENOUS BLOOD / Unknown Venipuncture / Unknown 04/01/2022 10:56 AM EST 04/01/2022 10:56 AM EST Meka Sanchez MD CHEMISTRY ORDERABLE S Final Result [facility] , [place] [address] from Last 3 Months or Most Recently Relevant to Health Maintenance Insurance * Guarantor: Daron Rooney Jr. Account Type Relation to Patient Date of Phone Billing Address [place] Personal Family Self Advance Directives For more information, please contact: [phone] * Full Code (Latest Code Status on File) Date Activated Date Inactivated Comments 04/20/2014 4:32 PM 04/20/2014 9:39 PM Care Teams Manager Appointment Relationship Specialty Start Date End Date Nannette Schmidt DO [address] [address] PCP - General Family Medicine 05/28/23
[2024-11-02 09:56] LABS: Hematocrit 49.4 % (42.0-52.0); Hemoglobin 17.1 g/dL (14.1-18.0); Immature Granulocytes % 0.5 %; Mean Corpuscular HGB Conc 34.6 g/dL (31.8-35.4); Mean Corpuscular Hemoglobin 31.3 pg (27.0-31.2); Mean Corpuscular Volume 90.3 fl (80-94); Nucleated Red Blood Cells % 0 %; Platelet Count 189 K/mm3 (142-424); Red Blood Count 5.47 M/mm3 (4.60-6.20); Red Cell Distribution Width-SD 47.6 fL; White Blood Count 10.8 K/mm3 (4.8-10.8)
[2024-11-02 10:14] LABS: Albumin Level 4.5 g/dl (3.5-5.0); Chloride 104 mmol/L (98-107); Sodium 139 mmol/L (136-145)
[2024-11-02 10:15] LABS: Potassium 3.9 mmoL/L (3.5-5.1)
[2024-11-02 10:17] LABS: Alanine Aminotransferase 42 U/L (12-78); Alkaline Phosphatase 100 U/L (38-126); Anion Gap 8.9 mEq/L (5-15); Aspartate Amino Transferase 29 U/L (17-59); Bilirubin,Direct 0.2 mg/dl (0.0-0.4); Bilirubin,Indirect 0.5 mg/dL (0.0-0.9); Bilirubin,Total 0.7 mg/dl (0.2-1.3); Bilirubin,Unconjugated 0.5 mg/dL (0.0-1.1); Blood Urea Nitrogen 15 mg/dl (9-20); Calcium 9.2 mg/dl (8.4-10.2); Carbon Dioxide 30 mmol/L (22.0-30.0); Cholesterol 94 mg/dl (140-200); Creatinine,Serum 1.10 mg/dl (0.66-1.25); Estimated Glomerular Filt Rate 68 ml/min (>60); GFR (African American) 82 ML/MIN (>60); Glucose 83 mg/dl (74-100); Total Protein,Serum 6.8 g/dl (6.3-8.2); Triglycerides 76 mg/dl (30-150)
[2024-11-02 10:18] LABS: HDL Cholesterol 41 mg/dl (40-60); Magnesium 2.0 mg/dl (1.6-2.3)
[2024-11-02 10:48] LABS: Thyroid Stimulating Hormone 2.87 uIU/mL (0.465-4.68)
[2024-11-02 11:21] LABS: Free T4 (Free Thyroxine) 1.25 ng/dl (0.78-2.19)
== END 2024-11-02 23:59 | disposition home or self-care (01) ==
LOC: LAB 09:24
PROVIDERS: PCP Student in an Organized Health Care Education/Training Program; Visit Provider Physician Assistant
DX: I25.810 Atherosclerosis of coronary artery bypass graft(s) without angina pectoris (principal); I10 Essential (primary) hypertension; I48.0 Paroxysmal atrial fibrillation
CPT/HCPCS: 36415; 80048; 80061; 80076; 83735; 84439; 84443; 85025; 93270